=== PATIENT | male | born 1970 | race Caucasian/White ===

== ENCOUNTER 2018-10-19 06:58 | Day surgery (SDC) | payer BC, SELFPAY ==
[2018-10-19 07:21] VITALS: BP 120/78; PULSE 67; RESP 16; TEMP 35.8; O2SAT 95
[2018-10-19] MEDS: Lactated Ringers 1,000 ML 30 ML IV (07:43)
--- NOTE | 2018-10-19 08:55 | STOM_PTH ---
PATIENT: Tushar Genao LOC: [facility] U#:[id number] AGE/SX: 48/M ROOM: RE10/19/[address]: Prince Ramesh DO : 1970 BED: DIS: 10/19/2018 SPEC #: [id number] RECD: 10/19/18 13:02 STATUS: PO [facility] #: [id number] MIA: 10/19/18 08:[address]: Prince Ramesh DEPT: Surgical Specimen RECD BY: Rubina Jc ENTERED: 10/19/18 13:04 SP TYPE: STOMACH OTHR DR: Spike Oconnor Tissues: 1 - STOMACH BIOPSY 2 - ESOPHAGUS BIOPSY 3 - BIOPSY BOWEL Procedures: GROSS AND MICRO LEVEL 4 Comments: [id number]
[2018-10-19 10:16] VITALS: BP 102/63; PULSE 53; RESP 16; TEMP 36; O2SAT 96
--- NOTE | 2018-10-19 10:17 | COLE_ITS ---
Date of service: 10/19/18 Time of Service: 10:13 Colonoscopy Report Date of procedure: 10/19/18 Pre-op diagnosis general: 1. GERD 2. Colorectal cancer screening Post-op diagnosis procedure note: other (1. GERD 2. Sigmoid Colon polyp) Procedure: 1. Esophagogastroduodenoscopy with biopsy by cold forceps 2. Colonoscopy to the cecum with biopsy by cold snare. Surgeon: Prince Ramesh Anesthesia proc note operative: MAC (Johnny Solorzano CRNA: ASA 2, Mallampati Class II) Estimated blood loss (mL): 2 Pathology: other (1. Gastric Antrum 2. lower esophagus 3. sigmoid colon polyp.) Complications: None Disposition: same day Indications: 48-year-old male referred for GERD and colorectal cancer screening. He has had a fairly long history of gastroesophageal reflux disease well treated with PPI. Though if he stopped taking his medicine he will develop symptoms. He has never had an upper endoscopy to evaluate this. He is also due for colorectal cancer screening by colonoscopy he has been asymptomatic and has no family history of colorectal cancer. It was recommended to him that he have upper endoscopy and colonoscopy. The procedures were reviewed with him, and the risks of the procedures were discussed. All his questions were answered to his satisfaction. Consent was obtained to proceed with EGD and colonoscopy Prep: Miralax/Dulcolax (Bowel prep adequate) Findings: In examining the upper gastrointestinal tract from the oropharynx to the third portion of the duodenum, there is some inflammatory changes encountered in the gastric antrum, and in the esophagus there were some subtle changes that could suggest eosinophilic esophagitis. Biopsies were taken from both the gastric antrum and lower esophagus. In examination of the colon from cecum to anus, a small polyp less than 1 cm in greatest diameter was identified in the sigmoid colon which was subsequently removed by cold biopsy forceps. No other abnormalities are noted of the colon, rectum, or anorectal junction. Procedure Description: The patient was brought to the procedure room. Monitoring for telemetry, end-ti kimmie CO2, O2 saturation, blood pressure were applied. An appropriate timeout was taken reviewing the patient's identification, allergies, medications,and procedure. Sedation was titrated for effect by the [employer]ISON LIB[employer]. The upper endoscopy was performed first. An Olympus variable stiffness endoscope was advanced from the oropharynx to the third portion of the duodenum without difficulty. The scope was then withdrawn in circumferential manner from the duodenum back to the oropharynx. In performing withdrawal of the scope, the duodenum appeared grossly normal. The scope was withdrawn into the gastric antrum and retroflexed to examine the entire stomach, inflammatory changes were noted of the gastric antrum which biopsies were taken from and submitted for pathology the remainder of the stomach including the lesser and greater curvatures anterior and posterior surface and fundus appear grossly normal. The scope was then withdrawn to the GE junction which I measured at 38 cm. The Z line was at 38 cm and appeared regular. I did see some subtle changes in the lower esophagus, tracheal rings, suggestive of a eosinophilic esophagitis I withdrew the scope through the remainder of the esophagus all which appear grossly normal. Scope was then withdrawn terminating the upper endoscopy. The patient was then repositioned for colonoscopy. Sedation was titrated for effect again. Once adequate sedation was achieved, I performed a inspection of the external perineum, and a digitial rectal examination. No significant external abnormalities were noted. On digital rectal examination, there was no blood, no masses, good rectal tone. I advanced the colonoscope from the anus to the cecum under direct visualization. The cecum was identified by the ileal-cecal valve, and the appendiceal orifice. The scope was then withdrawn in circumferential manner from the cecum to the rectum. In the colon a polypoid was identified in the sigmoid. The polyp was less than 1 cm in greatest diameter and removed by cold biopsy forceps, no other abnormalities were noted of the colon. The scope was then withdrawn into the rectum, and retroflexed. No abnormalities were noted of the rectum or anorectal junction. The scope was then withdrawn, terminating the procedure. There were no complications during the procedure, and the patient tolerated the procedure well. The patient was returned to the day surgery recovery area in good condition. Plan: We will await pathology before making further recommendations.
[2018-10-19] MEDS: Mylanta Suspension 30 ML CUP PO (10:51)
--- NOTE | 2018-10-19 18:51 | W.PM.DSUDISC ---
Discharge Plan Disposition Patient Disposition: HOME Condition: Good Discharge Details Reason For Visit: SCREENING/ GERD Attending Provider: Prince Ramesh Primary Care Provider: Spike Oconnor Home Meds and New Rx's Prescriptions: Continued vitamin B complex [B Complex 1] tablet 1 tab PO DAILY RF: 0 acetaminophen [Tylenol] 325 MG tablet 975 mg PO PRN PRNRF: 0 Prilosec OTC 20 MG tablet,delayed release (DR/EC) 20 mg PO DAILY RF: 0 multivitamin [Once Daily] 1 EACH tablet 1 tab PO DAILY RF: 0 Discontinued bisacodyl [Dulcolax (bisacodyl)] 5 mg tablet,delayed release (DR/EC) 10 mg PO BID Qty: 4 RF: 0 polyethylene glycol 3350 [Miralax] 17 gram/dose powder 255 g PO ONCE Qty: 255 RF: 0 Discharge Instructions Instructions: Colonoscopy (DC), Upper Endoscopy (DC) Stand Alone Forms: Colonoscopy Post Instructions, DSU Post EGD Instructions, Press [place] (DSU) Activity:: Activity as Tolerated Diet:: As Tolerated Discharge Orders Discharge Orders: Discharge Order (Routine); Ordered 10/19/18 Ordered By: Prince Ramesh Discharge Data Discharge Date/Time-TO BE ENTERED AT DEPARTURE: 10/19/18 11:07 DS: Diagnosis Discharge Diagnosis (1) Acid reflux: Status: Acute Asessment and Plan: Upper endoscopy performed (2) Encounter for colorectal cancer screening: Status: Acute Asessment and Plan: Colonoscopy performed
== END 2018-10-19 11:07 | disposition home or self-care (01) ==
PROVIDERS: PCP Specialist/Technologist Athletic Trainer; Visit Provider Surgery
PROC: (CPT 45385; principal; 2018-10-19 08:15)
DX: Z12.11 Encounter for screening for malignant neoplasm of colon (principal); D12.5 Benign neoplasm of sigmoid colon; K21.9 Gastro-esophageal reflux disease without esophagitis; K31.89 Other diseases of stomach and duodenum; K21.0 Gastro-esophageal reflux disease with esophagitis
CPT/HCPCS: 45385; 43239; 88305

== ENCOUNTER 2019-01-14 09:17 | Emergency (ER) | payer BC, SELFPAY ==
[2019-01-14 09:22] VITALS: BP 143/84; PULSE 68; RESP 18; TEMP 36.8; O2SAT 97
--- NOTE | 2019-01-14 09:52 | W.ED.GENAD ---
Discharge Plan Disposition Patient Disposition: HOME Condition: Stable Discharge Details Chief Complaint: RespSymp Clinical Impression: URI (upper respiratory infection) Primary Care Provider: Spike Oconnor ED Provider: Mohsen Bradford Home Meds and New Rx's Prescriptions: New levofloxacin 750 mg tablet 750 mg PO DAILY Qty: 5 RF: 0 prednisone 20 mg tablet 60 mg PO DAILY 5 Days Qty: 15 RF: 0 Continued vitamin B complex [B Complex 1] tablet 1 tab PO DAILY RF: 0 acetaminophen [Tylenol] 325 MG tablet 975 mg PO PRN PRNRF: 0 Prilosec OTC 20 MG tablet,delayed release (DR/EC) 20 mg PO DAILY RF: 0 multivitamin [Once Daily] 1 EACH tablet 1 tab PO DAILY RF: 0 Discharge Instructions Instructions: Upper Respiratory Infection (ED) Additional Instructions: follow up with your primary care provider within a week especially if you are not improving. You should discuss with them having formal pulmonary function testing at that time as well if you feel you are becoming more ill or more short of breath despite the medications return to the emergency department Medical Decision Making 48 yo male with hx of gerd, former smoker with over 30 years of smoking per pt, who comes in with cc of cough for a few days and chills. Denies recent travel, chest pain/pressure, abdominal pain, rashes. He is speaking in full sentences on exam in no distress and appears well systemically. He has wheezing in the apices bilaterally, no focal rhonchi or crackles. He has no abdominal tenderness, no murmurs or stigmata of endocarditis. I suspect he has a uri, and could also have undiagnosed copd gien his smoking hx. Given the wheezing and increased cough will treat with albuterol and steroids and also abx. He appears well without focal findings on lung exam or hypoxia so do not feel chest imaging indicate.d No calf pain or evidence of dvt or pleuritic chest pain so doubt pe at this time. ADvised f/u with pcp and return precautions given Differential Diagnosis uri, pna, copd exacerbation HPI General Mode of arrival: ambulatory. Date/Time Provider Initiated Documentation: 01/14/19 09:46. Limitations to Documentation: no limitations. Information obtained by: patient. History of Present Illness 48 year old M presents to the emergency department with the chief complaint of cough, described as moderate, Patient reports no radiation. Patient started experiencing this day(s) (4) and it has been intermittent. No relieving factors improve symptom(s), No exacerbating factors reported . Patient notes fever/chills (chills, no fevers). Patient did receive the following treatments prior to arrival, none Related Data Home Medications Medication Instructions Recorded Confirmed multivitamin [Once Daily] 1 tab PO DAILY 03/23/17 01/14/19 Prilosec OTC 20 mg PO DAILY 05/02/17 01/14/19 acetaminophen [Tylenol] 975 mg PO PRN PRN 05/02/17 01/14/19 vitamin B complex tablet 1 tab PO DAILY 09/24/18 01/14/19 levofloxacin 750 mg PO DAILY #5 tab 01/14/19 prednisone 60 mg PO DAILY 5 Days #15 tab 01/14/19 Previous Rx's Medication Instructions Recorded levofloxacin 750 mg PO DAILY #5 tab 01/14/19 prednisone 60 mg PO DAILY 5 Days #15 tab 01/14/19 Allergies Allergy/AdvReac Type Severity Reaction Status Date / Time acetaminophen Allergy Severe Verified 01/14/19 09:55 [From Vicks NyQuil Cold/Flu Liquicap] iodine Allergy Severe Anaphylaxsis, Verified 01/14/19 09:55 hives shellfish derived Allergy Verified 01/14/19 09:55 dextromethorphan AdvReac Severe Verified 01/14/19 09:55 [From Vicks NyQuil Cold/Flu Liquicap] doxylamine AdvReac Severe Verified 01/14/19 09:55 [From Vicks NyQuil Cold/Flu Liquicap] General Stated Complaint: RespSymp JAIMIE: 3 Review of Systems Review of Systems All systems reviewed & are unremarkable except as noted in HPI and below Constitutional Denies fever(s) and Denies weakness ENT Denies change in voice Cardiovascular Denies chest pain Gastrointestinal Denies abdominal pain and Denies vomiting Musculoskeletal Denies joint swelling Neurologic Denies weakness [facility] Medical History Former smoker (Inactive) Umbilical hernia (Resolved) Acid reflux (Acute) Hyperlipidemia (Chronic) Tubular adenoma of colon (Inactive 10/19/18) Surgical History History of esophagogastroduodenoscopy (EGD) (Chronic 10/19/18) H/O colonoscopy (Chronic 10/19/18) H/O umbilical hernia repair (Inactive 05/03/17) Social History Smoking/Tobacco Use Status: Former Tobacco Use Quit Date: 01/07/15 Tobacco: How many years used: 35 Alcohol Intake: current Alcohol Intake frequency: holidays/special occasions only Drug use: Never Substance use type: does not use Do you feel safe at home: Yes Do you feel safe in your relationship?: Yes Exam Const General: no acute distress Orientation: alert HENMT Head: normal to inspection Ears: external ears normal General nose exam: external nose normal Mouth: moist mucous membranes Eyes General: appearance normal, both eyes and all related structures Neck Neck: normal visual inspection Resp Effort & Inspection: normal respiratory effort and able to speak in complete sentences Cardio Rate: regular rate Skin General skin exam: no rashes or lesions noted Neuro General: alert and oriented x3 Extrem General: normal to inspection Psych Mental Status: mental status grossly normal Course Vital Signs Temperature 36.8 C 01/14/19 09:22 Pulse 68 01/14/19 09:22 Respiratory Rate 18 01/14/19 09:22 Blood Pressure 143/84 H 01/14/19 09:22 Pulse Oximetry 97 01/14/19 09:22 Temperature 36.8 C 01/14/19 09:22 Temperature Source Skin 01/14/19 09:22 Pulse 68 01/14/19 09:22 Respiratory Rate 18 01/14/19 09:22 Blood Pressure 143/84 H 01/14/19 09:22 Blood Pressure Position Sitting 01/14/19 09:22 Pulse Oximetry 97 01/14/19 09:22 Oxygen Delivery Method Room Air 01/14/19 09:22 Oxygen Flow Rate 0 01/14/19 09:22 Pain Level 6 01/14/19 09:22
--- NOTE | 2019-01-14 09:56 | ED.GENADUL_ITS ---
Discharge Plan Disposition Patient Disposition: HOME Condition: Stable Discharge Details Chief Complaint: RespSymp Clinical Impression: URI (upper respiratory infection) Primary Care Provider: Spike Oconnor ED Provider: Mohsen Bradford Home Meds and New Rx's Prescriptions: New levofloxacin 750 mg tablet 750 mg PO DAILY Qty: 5 RF: 0 prednisone 20 mg tablet 60 mg PO DAILY 5 Days Qty: 15 RF: 0 Continued vitamin B complex [B Complex 1] tablet 1 tab PO DAILY RF: 0 acetaminophen [Tylenol] 325 MG tablet 975 mg PO PRN PRNRF: 0 Prilosec OTC 20 MG tablet,delayed release (DR/EC) 20 mg PO DAILY RF: 0 multivitamin [Once Daily] 1 EACH tablet 1 tab PO DAILY RF: 0 Discharge Instructions Instructions: Upper Respiratory Infection (ED) Additional Instructions: follow up with your primary care provider within a week especially if you are not improving. You should discuss with them having formal pulmonary function testing at that time as well if you feel you are becoming more ill or more short of breath despite the medications return to the emergency department Medical Decision Making 48 yo male with hx of gerd, former smoker with over 30 years of smoking per pt, who comes in with cc of cough for a few days and chills. Denies recent travel, chest pain/pressure, abdominal pain, rashes. He is speaking in full sentences on exam in no distress and appears well systemically. He has wheezing in the apices bilaterally, no focal rhonchi or crackles. He has no abdominal tenderness, no murmurs or stigmata of endocarditis. I suspect he has a uri, and could also have undiagnosed copd gien his smoking hx. Given the wheezing and increased cough will treat with albuterol and steroids and also abx. He appears well without focal findings on lung exam or hypoxia so do not feel chest imaging indicate.d No calf pain or evidence of dvt or pleuritic chest pain so doubt pe at this time. ADvised f/u with pcp and return precautions given Differential Diagnosis uri, pna, copd exacerbation HPI General Mode of arrival: ambulatory . Date/Time Provider Initiated Documentation: 01/14/19 09:46 . Limitations to Documentation: no limitations . Information obtained by: patient . History of Present Illness 48 year old M presents to the emergency department with the chief complaint of cough, described as moderate, Patient reports no radiation. Patient started experiencing this day(s) (4) and it has been intermittent. No relieving factors improve symptom(s), No exacerbating factors reported . Patient notes fever/chills (chills, no fevers). Patient did receive the following treatments prior to arrival, none Related Data Home Medications Medication Instructions Recorded Confirmed multivitamin [Once Daily] 1 tab PO DAILY 03/23/17 01/14/19 Prilosec OTC 20 mg PO DAILY 05/02/17 01/14/19 acetaminophen [Tylenol] 975 mg PO PRN PRN 05/02/17 01/14/19 vitamin B complex tablet 1 tab PO DAILY 09/24/18 01/14/19 levofloxacin 750 mg PO DAILY #5 tab 01/14/19 prednisone 60 mg PO DAILY 5 Days #15 tab 01/14/19 Previous Rx's Medication Instructions Recorded levofloxacin 750 mg PO DAILY #5 tab 01/14/19 prednisone 60 mg PO DAILY 5 Days #15 tab 01/14/19 Allergies Allergy/AdvReac Type Severity Reaction Status Date / Time acetaminophen Allergy Severe Verified 01/14/19 09:55 [From Vicks NyQuil Cold/Flu Liquicap] iodine Allergy Severe Anaphylaxsis, Verified 01/14/19 09:55 hives shellfish derived Allergy Verified 01/14/19 09:55 dextromethorphan AdvReac Severe Verified 01/14/19 09:55 [From Vicks NyQuil Cold/Flu Liquicap] doxylamine AdvReac Severe Verified 01/14/19 09:55 [From Vicks NyQuil Cold/Flu Liquicap] General Stated Complaint: RespSymp JAIMIE: 3 Review of Systems Review of Systems All systems reviewed & are unremarkable except as noted in HPI and below Constitutional Denies fever(s) and Denies weakness ENT Denies change in voice Cardiovascular Denies chest pain Gastrointestinal Denies abdominal pain and Denies vomiting Musculoskeletal Denies joint swelling Neurologic Denies weakness [facility] Medical History Former smoker (Inactive) Umbilical hernia (Resolved) Acid reflux (Acute) Hyperlipidemia (Chronic) Tubular adenoma of colon (Inactive 10/19/18) Surgical History History of esophagogastroduodenoscopy (EGD) (Chronic 10/19/18) H/O colonoscopy (Chronic 10/19/18) H/O umbilical hernia repair (Inactive 05/03/17) Social History Smoking/Tobacco Use Status: Former Tobacco Use Quit Date: 01/07/15 Tobacco: How many years used: 35 Alcohol Intake: current Alcohol Intake frequency: holidays/special occasions only Drug use: Never Substance use type: does not use Do you feel safe at home: Yes Do you feel safe in your relationship?: Yes Exam Const General: no acute distress Orientation: alert HENMT Head: normal to inspection Ears: external ears normal General nose exam: external nose normal Mouth: moist mucous membranes Eyes General: appearance normal, both eyes and all related structures Neck Neck: normal visual inspection Resp Effort & Inspection: normal respiratory effort and able to speak in complete sentences Cardio Rate: regular rate Skin General skin exam: no rashes or lesions noted Neuro General: alert and oriented x3 Extrem General: normal to inspection Psych Mental Status: mental status grossly normal Course Vital Signs Temperature 36.8 C 01/14/19 09:22 Pulse 68 01/14/19 09:22 Respiratory Rate 18 01/14/19 09:22 Blood Pressure 143/84 H 01/14/19 09:22 Pulse Oximetry 97 01/14/19 09:22 Temperature 36.8 C 01/14/19 09:22 Temperature Source Skin 01/14/19 09:22 Pulse 68 01/14/19 09:22 Respiratory Rate 18 01/14/19 09:22 Blood Pressure 143/84 H 01/14/19 09:22 Blood Pressure Position Sitting 01/14/19 09:22 Pulse Oximetry 97 01/14/19 09:22 Oxygen Delivery Method Room Air 01/14/19 09:22 Oxygen Flow Rate 0 01/14/19 09:22 Pain Level 6 01/14/19 09:22
[2019-01-14] MEDS: Albuterol HFA 8 GM 60 PUFF INH IH (10:05)
== END 2019-01-14 10:06 | disposition home or self-care (01) ==
PROVIDERS: Emergency Provider Emergency Medicine; PCP Specialist/Technologist Athletic Trainer
DX: J06.9 Acute upper respiratory infection, unspecified (principal); Z87.891 Personal history of nicotine dependence
CPT/HCPCS: 99283

== ENCOUNTER 2019-01-22 07:37 | Outpatient (CLI) | payer BC, SELFPAY ==
--- NOTE | 2019-01-22 08:17 | DI.RAD_ITS ---
SYMPTOM/DIAGNOSIS: COUGH, R05 PA AND LATERAL CHEST: The heart is normal in size. The lungs are clear. The mediastinal structures and pleura appear intact. CONCLUSION: Normal chest. No evidence of acute cardiopulmonary disease.
== END 2019-01-22 07:57 ==
PROVIDERS: PCP Specialist/Technologist Athletic Trainer; Visit Provider Specialist/Technologist Athletic Trainer
DX: R05 Cough (principal)
CPT/HCPCS: 71046

== ENCOUNTER 2019-08-02 10:42 | Outpatient (REF) | payer BC, SELFPAY ==
[2019-08-02 20:20] LABS: Anion Gap 10.2 mmol/L (3-11); BUN 13 mg/dL (7-18); CO2 27.8 mmol/L (21.0-32.0); CREATININE 1.06 mg/dL (0.70-1.30); Calcium 9.2 mg/dL (8.5-10.1); Calculated LDL 144 mg/dL; Chloride 104 mmol/L (98-107); Cholesterol 218 mg/dL (50-200); Glucose 95 mg/dL (70-100); HDL Cholesterol 37 mg/dL (40-60); Potassium 4.6 mmol/L (3.5-5.1); Sodium 142 mmol/L (136-145); Triglyceride 185 mg/dL (30-150)
[2019-08-05 11:34] LABS: PSA, Screening 0.4 ng/ml (0-3.5)
== END 2019-08-02 11:02 ==
LOC: NCHCN 10:42
PROVIDERS: PCP Specialist/Technologist Athletic Trainer; Visit Provider Specialist/Technologist Athletic Trainer
DX: Z00.00 Encounter for general adult medical examination without abnormal findings (principal); Z13.228 Encounter for screening for other metabolic disorders; Z13.220 Encounter for screening for lipoid disorders; Z12.5 Encounter for screening for malignant neoplasm of prostate
CPT/HCPCS: 80048; 80061; 84153

== ENCOUNTER 2019-08-26 14:39 | Outpatient (CLI) | payer BC, SELFPAY ==
[2019-08-26 17:29] LABS: TSH (W/Ref FT4) 2.69 uIU/mL (0.36-3.74)
== END 2019-08-26 14:59 ==
PROVIDERS: PCP Specialist/Technologist Athletic Trainer; Visit Provider Otolaryngology Otolaryngology/Facial Plastic Surgery
DX: R53.83 Other fatigue (principal)
CPT/HCPCS: 36415; 84443

== ENCOUNTER 2020-01-29 10:33 | Outpatient (CLI) | payer OTHER, SELFPAY ==
--- NOTE | 2020-01-29 10:15 | DI.RAD_ITS ---
EXAM: XR KNEE LT 3V AP,LAT,PRATEEK CLINICAL HISTORY: pain TECHNIQUE: COMPARISON: No exams were available for comparison FINDINGS: Three views were obtained. The lateral view shows an apparent knee joint effusion. No bony abnormal ity is seen. IMPRESSION:
== END 2020-01-29 10:53 ==
PROVIDERS: PCP Specialist/Technologist Athletic Trainer; Visit Provider Orthopaedic Surgery
DX: M25.562 Pain in left knee (principal); M25.462 Effusion, left knee; S83.512A Sprain of anterior cruciate ligament of left knee, initial encounter
CPT/HCPCS: 73562

== ENCOUNTER 2020-02-07 08:08 | Outpatient (CLI) | payer OTHER, SELFPAY ==
--- NOTE | 2020-02-07 | DI.MRI_ITS ---
EXAM: MR LOWER JOINT LT WO CLINICAL HISTORY: INJURY, KNEE PAIN. TECHNIQUE: Multiplanar multisequence MRI was performed. COMPARISON: XR left knee 01/29/2020. FINDINGS: BONES: There is marrow edema seen in the lateral aspect of the lateral femoral condyle and the proxim al lateral tibia. The findings are suggestive of contusions. JOINTS: There is mild thinning of the articular cartilage in the medial femoral tibial compartment. There is a small to moderate joint effusion. TENDONS: Extensor mechanism: Unremarkable. Medial retinaculum: Unremarkable. Lateral retinaculum: Unremarkable. Popliteus: Unremarkable. MUSCLES: Unremarkable. MENISCI: There is a tear of the posterior horn of the medial meniscus. The lateral meniscus is unrem arkable. SOFT TISSUES: There is a popliteal cyst present. LIGAMENTS: Anterior Cruciate: The fibers of the proximal anterior cruciate ligament appear incomplete suggesting a tear. Posterior Cruciate: Unremarkable. Medial Collateral:There is a partial tear of the proximal medial collateral ligament. Surrounding ed christopher is present. (Series 9001, image 18) Lateral Collateral: Unremarkable. OTHER: IMPRESSION: 1. Tear of the posterior horn of the medial meniscus. 2. Proximal anterior cruciate ligament tear. 3. Partial tear of the proximal medial collateral ligament. 4. Contusions involving the lateral femoral condyle and the proximal lateral tibia. 5. Joint effusion. DATA REPOSITORY:
== END 2020-02-07 08:28 ==
PROVIDERS: PCP Specialist/Technologist Athletic Trainer; Visit Provider Orthopaedic Surgery
DX: M25.562 Pain in left knee (principal); S80.02XA Contusion of left knee, initial encounter; M25.462 Effusion, left knee; S83.242A Other tear of medial meniscus, current injury, left knee, initial encounter; M71.22 Synovial cyst of popliteal space [Baker], left knee; S83.412A Sprain of medial collateral ligament of left knee, initial encounter; S83.512A Sprain of anterior cruciate ligament of left knee, initial encounter
CPT/HCPCS: 73721

== ENCOUNTER 2020-05-15 07:37 | Outpatient (CLI) | payer OTHER, BC, SELFPAY ==
[2020-05-16 23:43] LABS: COVID-19 RT-PCR Result NEGATIVE (Negative)
== END 2020-05-15 07:57 ==
PROVIDERS: PCP Specialist/Technologist Athletic Trainer; Visit Provider Orthopaedic Surgery
DX: S83.242A Other tear of medial meniscus, current injury, left knee, initial encounter (principal); S83.412A Sprain of medial collateral ligament of left knee, initial encounter
CPT/HCPCS: U0003

== ENCOUNTER 2020-05-18 06:13 | Day surgery (SDC) | payer OTHER, SELFPAY ==
[2020-05-18] VITALS (7 sets, daily range): BP systolic 128–161; BP diastolic 57–92; PULSE 49–59; RESP 12–17; TEMP 36.1–36.3; O2SAT 93–98
[2020-05-18] MEDS: Lactated Ringers 1,000 ML 80 ML IV (06:42)
[2020-05-18] MEDS: ceFAZolin 2 GM/50 ML BAG IVPB (07:28)
--- NOTE | 2020-05-18 08:36 | W.PM.DSUDISC ---
Discharge Plan Disposition Patient Disposition: HOME Condition: Good Discharge Details Reason For Visit: ARTHROSCOPY L KNEE Attending Provider: Bryan Kelsey Home Meds and New Rx's Prescriptions: New ibuprofen 800 mg tablet 800 mg PO TID Qty: 30 RF: 1 hydrocodone-acetaminophen 5-325 mg tablet 1 tab PO Q4H PRN (Reason: pain) Qty: 14 RF: 0 No Action vitamin B complex [B Complex 1] tablet 1 tab PO DAILY RF: 0 acetaminophen 500 mg tablet 1,500 mg PO ONCE PRNRF: 0 omeprazole magnesium [Prilosec OTC] 20 MG tablet,delayed release (DR/EC) 20 mg PO DAILY RF: 0 multivitamin [Once Daily] 1 EACH tablet 1 tab PO DAILY RF: 0 Discharge Instructions Additional Instructions: Crutches to walk. Put as much weight on L leg as your pain allows. Discontinue crutches when you can put full weight on L leg with very little pain. Keep cryocuff on L knee continuously until 11 pm tonite. Tomorrow, start to use 4 times/day for 1 hour each time. Elevate L leg on 1-2 pillows as much as possible for next 48 hours. May remove dressings, shower, and get incisions wet after 48 hours. Leave incisions uncovered when they are dry and sealed. Outpatient physical therapy for L knee rehab post-arthroscopic partial medial meniscectomy. Follow up with in 2 weeks. Take ibuprofen 3 times/day to decrease inflammation and swelling. Take hydrocodone for breakthru pain, if needed. Referrals: Bryan Kelsey MD [ [facility] STAFF PHYSICIAN] - (f/u in 2 weeks) Equipment/Supplies: Partial Weight Bearing Crutches Activity:: Activity as Tolerated Remove Dressings/Wound Care:: 48 hours Shower/Bathe:: 48 hours Diet:: As Tolerated Discharge Orders Discharge Orders: Discharge Order (Routine); Ordered 05/18/20 Ordered By: Bryan Kelsey
[2020-05-18] MEDS: oxyCODONE 5 MG TAB PO (09:43)
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
== END 2020-05-18 10:31 | disposition home or self-care (01) ==
PROVIDERS: Visit Provider Orthopaedic Surgery
PROC: (CPT 29870; principal; 2020-05-18 07:30)
DX: S83.242A Other tear of medial meniscus, current injury, left knee, initial encounter (principal); S83.512A Sprain of anterior cruciate ligament of left knee, initial encounter; X50.1XXA Overexertion from prolonged static or awkward postures, initial encounter; K21.9 Gastro-esophageal reflux disease without esophagitis
CPT/HCPCS: 29888; 29881; J0690; J1100; J1885; J2250; J2405; J2704

== ENCOUNTER 2020-11-13 19:15 | Outpatient (REF) | payer BC, SELFPAY ==
[2020-11-13 20:00] LABS: Calculated LDL 130 mg/dL (<100); Cholesterol 215 mg/dL (<200); HDL Cholesterol 37 mg/dL (40-60); Magnesium 2.1 mg/dL (1.8-2.4); Triglyceride 242 mg/dL (<150)
== END 2020-11-13 19:35 ==
LOC: NCHCN 19:15
PROVIDERS: PCP Specialist/Technologist Athletic Trainer; Visit Provider Nurse Practitioner Family
DX: Z00.00 Encounter for general adult medical examination without abnormal findings (principal); E78.2 Mixed hyperlipidemia; K21.9 Gastro-esophageal reflux disease without esophagitis; M23.92 Unspecified internal derangement of left knee
CPT/HCPCS: 80061; 83735

== ENCOUNTER 2021-01-20 02:00 | Outpatient (CLI) | payer OTHER, SELFPAY ==
--- NOTE | 2021-01-20 | DI.MRI_ITS ---
EXAM: MR LOWER JOINT LT WO CLINICAL HISTORY: LT KNEE PAIN,MEDIAL MENISCAL TEAR,S83.242A,INITIAL ENCOUNTER TECHNIQUE: Multiplanar multisequence MRI of the knee was performed. COMPARISON: CR XR KNEE LT 3V AP,LAT,PRATEEK from 01/29/2020 MR MR LOWER JOINT LT WO from 02/07/2020 X-rays January 2020 were reviewed FINDINGS: EFFUSION: There is a small joint effusion. There is a thin Cedeño's cyst in the medial popliteal dionte a which measures 7 cm length and 1 cm maximum AP dimension. MARROW:There is no evidence of fracture, nor prominent bone contusion. The amount of pivot shift bon e contusions seen on the January 2020 MRI scan as decreased and there is presently only a small amount of subarticular bone edema in outer aspect medial tibial plateau and overlying medial femoral condyle , this overlying the medial meniscal abnormality described below. PATELLOFEMORAL COMPARTMENT: The quadriceps tendon is intact. The patellar ligament is intact. There is small amount of fluid interposed between the distal patellar tendon and the anterior tibial tuber michael without signal abnormality within the tendon or within the tubercle nor abnormal signal within th e anterior intra-articular Hoffa fat pad. There is mild irregularity of the surface of the [place] cartilage over the lateral facet. No full thickness fissure. No osteochondral defect and no degenerative subarticular cysts in the posterior p atella at this level. There is no intraosseous signal to suggest recent patellar dislocation.There a re no acute patellar retinacular tears. CRUCIATE LIGAMENTS: There is a high-grade tear of the anterior cruciate ligament which is probably blood bacute.The posterior cruciate ligament is intact. MEDIAL COMPARTMENT/MEDIAL MENISCUS: There is now a complex tear of the posterior horn of the medial m eniscus which is more prominent on the prior study of January 2020. This may be related to increased t earing versus interval instrumentation. Extends towards the junction with the anterior horn and ther e is some extrusion of the anterior horn. There is also an element of miniscule capsular separation. There is also now an area of full-thickness cartilage thinning over the weight-bearing surface of t he medial femoral condyle which measures 1.4 cm wide by 1.1 cm AP. There is no subarticular edema in the femoral condyle at this level.. No osteophytes evident. MEDIAL COLLATERAL LIGAMENT: Sprain signal. Previously described partial tearing appears somewhat hea led at this time.. LATERAL COMPARTMENT/LATERAL MENISCUS: There is no evidence of lateral meniscal tear.There are no nik dral defects, osteochondral defects, subarticular marrow edema, nor osteophytes evident. ILIOTIBIAL BAND: Intact. However, there is fluid medial to the iliotibial band interposed between ba nd in the femoral condyle in the most lateral aspect of the suprapatellar bursa. LATERAL COLLATERAL LIGAMENT COMPLEX: The fibular collateral ligament is intact. The biceps femoris t endon is intact.Popliteus muscle and tendon are intact. IMPRESSION: 1. Compared to the prior knee MRI study of January 2020 the tear in the posterior horn of the medial me niscus has increased in size although correlation with any interval instrumentation is recommended. There is also now significant area of overlying cartilage denudation over the medial femoral condyle measuring 14 millimeters wide by 11 millimeters AP, not previously present. There is no subarticular edema nor unstable osteochondral defect at this level. Some extrusion of the anterior horn is noted . There are no tears of the lateral meniscus. 2. High-grade tear of the anterior cruciate ligament which appears subacute. The PCL is intact. 3. Lateral collateral ligament complex is intact. Some fluid is seen medial to the iliotibial band. 4. There is mild surface signal abnormality in the [place] cartilage over the lateral patellar facet . Slightly increased from previous but not full-thickness thinning nor associated with intraosseous abnormality within the subjacent patella. Also no evidence of prior patellar dislocation. 5. Small joint effusion. Cedeño cyst in the medial popliteal fossa is again noted.. DATA REPOSITORY:
== END 2021-01-20 02:20 ==
PROVIDERS: PCP Nurse Practitioner Family; Visit Provider Orthopaedic Surgery
DX: M25.562 Pain in left knee (principal); S83.242A Other tear of medial meniscus, current injury, left knee, initial encounter; S83.512A Sprain of anterior cruciate ligament of left knee, initial encounter; M25.462 Effusion, left knee
CPT/HCPCS: 73721

== ENCOUNTER 2021-04-29 16:24 | Emergency (ER) | payer BC, SELFPAY ==
[2021-04-29 16:27] VITALS: BP 156/89; PULSE 67; RESP 18; TEMP 37; O2SAT 96
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
[2021-04-29] MEDS: Bacitracin 30 GM TUBE TP (17:12)
== END 2021-04-29 17:17 | disposition home or self-care (01) ==
PROVIDERS: Emergency Provider Registered Nurse Emergency; PCP Nurse Practitioner Family
DX: L55.1 Sunburn of second degree (principal)
CPT/HCPCS: 99282; 99283

== ENCOUNTER 2021-11-19 12:04 | Outpatient (REF) | payer BC, SELFPAY ==
[2021-11-19 15:17] LABS: ALT 37 U/L (16-63); AST 19 U/L (15-37); Albumin 3.8 g/dL (3.4-5.0); Alkaline Phosphatase 120 U/L (46-116); Anion Gap 9.5 mmol/L (3-11); BUN 14 mg/dL (7-18); Bilirubin, Total 0.2 mg/dL (0.2-1.0); CO2 26.5 mmol/L (21.0-32.0); Calcium 8.7 mg/dL (8.5-10.1); Calculated LDL 124 mg/dL (<100); Chloride 104 mmol/L (98-107); Cholesterol 192 mg/dL (<200); Glucose 95 mg/dL (74-106); HDL Cholesterol 38 mg/dL (40-60); Potassium 4.3 mmol/L (3.5-5.1); Sodium 140 mmol/L (136-145); Total Protein 7.1 g/dL (6.4-8.2); Triglyceride 150 mg/dL (<150)
== END 2021-11-19 12:05 | disposition home or self-care (01) ==
LOC: NCHCN 12:04
PROVIDERS: PCP Nurse Practitioner Family; Visit Provider Nurse Practitioner Family
DX: E78.2 Mixed hyperlipidemia (principal); Z00.00 Encounter for general adult medical examination without abnormal findings
CPT/HCPCS: 80053; 80061

== ENCOUNTER 2021-12-01 01:04 | Outpatient (CLI) | payer BC, SELFPAY ==
[2021-12-01 12:45] LABS: Source Nasal/Nares
[2021-12-01 16:47] LABS: COVID-19 PCR Negative (Negative)
== END 2021-12-01 01:05 | disposition home or self-care (01) ==
LOC: LBO 01:04
PROVIDERS: PCP Nurse Practitioner Family; Visit Provider Surgery
DX: Z20.822 Contact with and (suspected) exposure to COVID-19 (principal)
CPT/HCPCS: 87635

== ENCOUNTER 2021-12-03 07:07 | Day surgery (SDC) | payer BC, SELFPAY ==
--- NOTE | 2021-12-02 11:42 | COLE_ITS ---
Colonoscopy Report Date of procedure: 12/03/21 Pre-op diagnosis general: Villous adenoma of the sigmoid in 2018 Post-op diagnosis procedure note: other (diverticula/polyps) Surgeon: Maryjo Melara Anesthesia Type: General:No Airway Estimated blood loss (mL): 2 Pathology: other Complications: None Disposition: same day Prep: Miralax/Dulcolax Findings: 17 Procedure Description: After informed consent was obtained the patient was taken to the procedure room and placed in a left decubitous position. Monitors were applied and a time out was done. The patients name, date of , procedure, allergies to medications and metal in their body was reviewed. The patient was then sedated. Once sedated and comfortable a rectal exam was done. External exam was normal. Internal exam revealed a normal sphincter tone and no palpable masses. The prost ate nl. The scope was then introduced and retrofelexed. No internal hemorrhoids were identified. The scope was then advanced to the cecum w/ out difficulty. The TI and appendiceal orifice were identified. The prep was BBPS-2 in right/tranverse colon, and BBPS-1 in left colon The scope was then slowly retracted over 17 minutes back into the rectum. He has a few small scattered diverticuli throughout the sigmoid colon. There is no signs of active bleeding or infection. He has multiple polyps that are removed. He has 2 polyps at 80 cm. one is 1 cm and the other is is .75 cm. They are both pedunculated. They are removed with a hot snare. No clip applied. He has x2, flat, 5 mm polyps 1 at 60 cm and the other at 50 cm. These are both removed with a cold biting forcep. He has another polyp at 20 cm. This is a 1 cm polyp that is pedunculated. It is removed with a hot snare. All specimens are retrieved and no bleeding is noted. The scope was removed and the patient was woken up and taken back to Same day surgery in stable condition. The patient tolerated the procedure well and there were no immediate complications. Follow up: The patient should follow up in 3-5years, path pd, unless they develop changes in bowel habits or other new gastrointestinal complaints.
--- NOTE | 2021-12-02 11:43 | PDOC.DSDIS_ITS ---
Discharge Plan Disposition Patient Disposition: HOME Condition: Good Discharge Details Reason For Visit: Colon scope/colonoscopy Attending Provider: Maryjo Melara Primary Care Provider: Delma Dos Santos Home Meds and New Rx's Prescriptions: Continued vitamin B complex [B Complex 1] tablet 1 tab PO DAILY 0RF acetaminophen 500 mg tablet 1,500 mg PO ONCE PRN0RF omeprazole magnesium [Prilosec OTC] 20 MG tablet,delayed release (DR/EC) 20 mg PO DAILY 0RF multivitamin [Once Daily] 1 EACH tablet 1 tab PO DAILY 0RF Discontinued polyethylene glycol 3350 17 gram/dose powder 238 g PO ONCE Qty: 238 0RF Rx Instructions: take per colonoscopy instructions bisacodyl [Dulcolax (bisacodyl)] 5 mg tablet,delayed release (DR/EC) 5 mg PO ONCE Qty: 4 0RF Rx Instructions: take per colonoscopy instructions ibuprofen 800 mg tablet 400 mg PO TID 0RF Discharge Instructions Additional Instructions: DSU Colonoscopy Post- Op Instructions Instructions for Everyone who is given Anesthesia: For your safety, please do the following for the next twenty-four (24) hours: *Do Not operate a motor vehicle (car, truck, motorcycle, etc.) *Do Not drink alcoholic beverages or use any recreational drugs for the first 24 hours or while taking pain medications. The medications in your body may have a reaction that can be dangerous. *Do Not make any important decisions or sign any important papers. Findings:multiple polyps diverticula- minor Follow up: My office will send a letter in 2 to 3 weeks time detailing the type of polyps and when to repeat the colonoscopy, most likely in 3 -5 years. -Take as multiple polyps removed today, no aspirin or NSAIDs for the next 5 days; Tylenol is okay. 1. No lifting over 20 pounds or strenuous activity for the first 24 hours after your procedure. After 24 hours there are no restrictions on your activity but you may feel fatigued for a few days. 2. After you arrive home you may have a light meal and return to your normal diet as you can tolerate it without feeling sick to your stomach. 3. You may have a bloated, gaseous feeling in your belly (abdomen) after a colonoscopy. Passing gas and belching will help. Walking or lying down on your left side with your knees flexed may relieve the discomfort. Call the office at [phone] (Office) or [phone] (Hospital) right away if you notice any of the following: a.Vomiting of blood or ?coffee ground stools?. b.Rectal bleeding 1Tbsp, blood clots or continuous bleeding. c.Severe belly (abdominal) pain. d.A hard distended belly (abdomen) and an inability to pass gas. 4. Please don?t expect to have a normal BM (bowel movement) for 2-3 days after your procedure. 5. If there are questions regarding the findings of your procedure, please contact your doctor 6. If you are unable to contact your doctor with a problem, contact the hospital at [phone]. 7. Continue all your regular medications unless directed otherwise. I understand the above instructions and have no questions. Signature of Patient or Adult Escort Name of Responsible Adult Escort Signature of Nurse Date/Time Activity:: See above Diet:: See above Discharge Orders Discharge Orders: Discharge Order (Routine); Ordered 12/02/21 Ordered By: Maryjo Melara DS: Diagnosis Discharge Diagnosis (1) Villous adenoma of left colon: Status: Acute (2) Diverticula of colon: Status: Acute
[2021-12-03 07:18] VITALS: BP 108/67; PULSE 48; RESP 16; TEMP 36.6; O2SAT 97
[2021-12-03] MEDS: Lactated Ringers 1,000 ML 80 ML IV (07:33)
--- NOTE | 2021-12-03 08:10 | W.ANESPRE ---
General Info Date of Service Date Performed: 12/03/21 Height: 5 ft 10 in Weight: 101.6 kg Body Mass Index (BMI): 32.1 Surgical Procedure: Operation Date: 12/03/21 08:20 Proposed Procedure Side Surgeon cindy Melara, DO Meds Allergies and Home Medications Allergies Allergy/AdvReac Type Severity Reaction Status Date / Time dextromethorphan Allergy Severe Anaphylaxis Verified 12/03/21 07:16 [From [facility] NyQuil Cold/Flu Liquicap] shellfish derived Allergy Severe Anaphylaxis, Verified 12/03/21 07:16 hives doxylamine AdvReac Severe Anaphylaxis Verified 12/03/21 07:16 [From [facility] NyQuil Cold/Flu Liquicap] Home Medication Medication Instructions Recorded multivitamin (Once Daily) 1 tab PO DAILY 03/23/17 omeprazole magnesium 20 mg 20 mg PO DAILY 05/02/17 tablet,delayed release (Prilosec OTC) vitamin B complex (B Complex 1) 1 tab PO DAILY 09/24/18 acetaminophen 500 mg tablet 1,500 mg PO ONCE PRN tab 05/14/20 ibuprofen 800 mg tablet 400 mg PO TID 04/29/21 Current Visit Medications: Current Medications Generic Name Dose Route Start Last Admin Trade Name Freq PRN Reason Stop Dose Admin Hyoscyamine Sulfate 0.125 mg 12/03/21 06:00 Hyoscyamine 0.125 Mg Sl/Oral/Chew SL 12/03/21 16:00 DIRECTED PRN Ringer's Solution 1,000 mls @ 80 mls/hr 12/03/21 06:00 12/03/21 07:33 IV 01/01/22 23:59 80 mls/hr INFUSION JES Administration IV Miscellaneous Supplies 1 each 12/03/21 06:00 Iv Access IV 01/01/22 23:59 DIRECTED JES Ondansetron HCl 4 mg 12/03/21 06:00 Ondansetron 4 Mg/2 Ml Vial IVP 12/03/21 16:00 Q4H PRN PRN Nausea / Vomiting Sodium Chloride 0 ml 12/03/21 06:00 Normal Saline Flush 10 Ml Syr IV 01/01/22 23:59 PRN PRN Sodium Chloride 0 ml 12/03/21 06:00 Normal Saline 10 Ml Vial IJ 01/01/22 23:59 DIRECTED PRN Sterile Water 0 ml 12/03/21 06:00 Water,Injection,Sterile 10 Ml Vial IJ 01/01/22 23:59 DIRECTED PRN PFSH Active Problems Active Problems: Problem Status Onset Code Villous adenoma of left colon D37.4 Second degree burn of multiple sites of lower extremity T24.299A Screening for colon cancer Z12.11 Pes anserine bursitis M70.50 Tear of medial collateral ligament of left knee 01/27/20 S83.412A Acute medial meniscus tear of left knee 01/27/20 S83.242A Torn ACL (anterior cruciate ligament) 01/27/20 S83.519A Recurrent tonsillitis J03.91 Reflux esophagitis K21.0 Tonsil stone J35.8 Fatigue R53.83 Hyperlipidemia E78.5 Medical History Medical History Former smoker Hyperlipidemia Past history of chewing tobacco use Tear of medial collateral ligament of left knee (01/27/20) Tubular adenoma of colon (10/19/18) Dr Beltrán, repeat colo 3 years Umbilical hernia Surgical History Surgical History Acute medial meniscus tear of left knee (01/27/20) Status post arthroscopy with partial medial meniscectomy and debridement of torn ACL: 05/18/2020 H/O colonoscopy (10/19/18) 10/19/[address] Beltrán, tubulovillous adenoma, repeat in three years. H/O umbilical hernia repair (05/03/17) Dr beltrán History of esophagogastroduodenoscopy (EGD) (10/19/18) 10/19/18 Dr Beltrán, reflux esophagitis Tobacco Smoking/Tobacco Use Status: Former Tobacco Use Tobacco: How many years used: 35 Alcohol Alcohol Intake: current Alcohol intake frequency: holidays/special occasions only Substance Use Substance use: Never Substance use type: does not use Vital Signs and Lab Results Vital Signs Most Recent Vital Signs in EMR: Most Recent Vital Signs Temp Pulse Resp BP Pulse Ox 36.6 C 48 L 16 108/67 97 12/03/21 07:18 12/03/21 07:18 12/03/21 07:18 12/03/21 07:18 12/03/21 07:18 Lab Results Blood Type / Crossmatch: No Data to Display Complete Blood Count: No Data to Display Complete Metabolic Panel: Sodium Level 140 mmol/L (136-145) 11/19/21 08:45 11/19/21 Potassium Level 4.3 mmol/L (3.5-5.1) 11/19/21 08:45 11/19/21 Chloride Level 104 mmol/L (98-107) 11/19/21 08:45 11/19/21 Carbon Dioxide Level 26.5 mmol/L (21.0-32.0) 11/19/21 08:45 11/19/21 Blood Urea Nitrogen 14 mg/dL (7-18) 11/19/21 08:45 11/19/21 Creatinine 1.0 mg/dL (0.70-1.30) 11/19/21 08:45 11/19/21 Estimated GFR/1.73 m2 >= 60.00 (mL/min/1.73m2) 11/19/21 08:45 11/19/21 Calcium Level 8.7 mg/dL (8.5-10.1) 11/19/21 08:45 11/19/21 Albumin 3.8 g/dL (3.4-5.0) 11/19/21 08:45 11/19/21 Glucose Level 95 mg/dL (74-106) 11/19/21 08:45 11/19/21 Liver Function Panel: Alanine Aminotransferase (ALT/SGPT) 37 U/L (16-63) 11/19/21 08:45 11/19/21 Aspartate Amino Transf (AST/SGOT) 19 U/L (15-37) 11/19/21 08:45 11/19/21 Coagulation Panel: No Data to Display Cardiac Panel: No Data to Display Arterial Blood Gas: No Data to Display Venous Blood Gas: No Data to Display Pancreas Panel: No Data to Display Thyroid Panel: No Data to Display Infectious Disease: Coronavirus (COVID-19)(PCR) Negative (Negative) 12/01/21 08:21 12/01/21 Coronavirus 2019 Source Nasal/Nares 12/01/21 08:21 12/01/21 Blood Cultures: No Data to Display Toxicology Panel: No Data to Display Anesthesia Assessment and Plan Anesthesia History Personal History: No History of Anesthesia Complications Family History: No Family History of Anesthesia Complications Exercise Tolerance Exercise Tolerance: Metabolic Equivalents>4 Pertinent Negatives Pertinent Negatives: No Major Cardiovascular Symptoms or Complaints and No Major Pulmonary Symptoms or Complaints Cardiac & Pulmonary Exam Cardiac Exam: Normal S1/S2 Heart Sounds Pulmonary Exam: Clear Bilateral Breath Sounds Implantable Cardiac Device Does patient have a Pacemaker or an ICD?: No Airway Exam Known Difficult Airway: No Mallampati Class: 2 Mouth Opening: Normal (> 3cm) Thyromental Distance: Greater than 3 cm Facial Hair: Full Oquendo (Partial Oquendo) Neck Range of Motion: Full ROM Neck Circumference: Normal Teeth Condition: Normal Dentition ASA Classification ASA Score: ASA 2 Emergency Case?: No NPO Status NPO Status: NPO Clears >2 hours, Solids >8 hours Anesthesia Plan Resuscitation Status: Full Code Anesthesia Technique: General Anesthesia Airway Planned: Natural Airway Monitors Used: Standard Monitors
[2021-12-03 08:13] VITALS: BMI 32.1
--- NOTE | 2021-12-03 08:36 | BOWEL_PTH ---
PATIENT: Tushar Genao LOC: [facility] U#:[id number] AGE/SX: 51/M ROOM: RE12/03/[address]: Maryjo Melara : 1970 BED: DIS: 12/03/2021 SPEC #: [id number] RECD: 12/03/21 12:51 STATUS: PO [facility] #: [id number] MIA: 12/03/21 08:[address]: Maryjo Melara DEPT: Surgical Specimen RECD BY: Rubina Jc ENTERED: 12/03/21 12:53 SP TYPE: Bowel OTHR DR: Delma Dos Santos Tissues: 1 - BIOPSY BOWEL 2 - BIOPSY BOWEL 3 - BIOPSY BOWEL 4 - BIOPSY BOWEL Procedures: GROSS AND MICRO LEVEL 4 Comments: [id number]
[2021-12-03 09:05] VITALS: BP 118/69; PULSE 40; RESP 16; TEMP 36.4; O2SAT 97
[2021-12-03 09:10] VITALS: BP 127/78; PULSE 43; RESP 14; TEMP 36.4; O2SAT 98
[2021-12-03 09:15] VITALS: BP 127/78; PULSE 43; RESP 14; TEMP 36.4; O2SAT 98
[2021-12-03 09:24] VITALS: BP 124/85; PULSE 45; RESP 16; TEMP 36.3; O2SAT 97
--- NOTE | 2021-12-03 09:46 | W.ANESPOSTOP ---
Postoperative Evaluation Date, Time and Location Date Performed: 12/03/21 Time Performed: 09:20 Patient Location: PACU Vital Signs Most Recent Imported Vital Signs: Most Recent Vital Signs Temp Pulse Resp BP Pulse Ox 36.3 C L 45 L 16 124/85 97 12/03/21 09:24 12/03/21 09:24 12/03/21 09:24 12/03/21 09:24 12/03/21 09:24 Pain Score Most Recent Pain Score: Most Recent Pain Score Pain Level 0 12/03/21 09:24 Assessment Mental Status: Awake (Alert & Oriented to Patient Baseline) Airway and Respiratory Function: Patent airway with normal (patient baseline) respiratory exam Cardiovascular Function: Hemodynamically Stable Hydration Status: Adequately Hydrated Nausea & Vomiting: No Nausea or Vomiting Pain: Pt. Denies Any Pain Peripheral Nerve Block: Patient did not receive a nerve block
[2021-12-03 09:52] VITALS: BP 128/79; PULSE 38; RESP 16; TEMP 36.4; O2SAT 97
== END 2021-12-03 10:25 | disposition home or self-care (01) ==
LOC: SUR 07:07
PROVIDERS: PCP Nurse Practitioner Family; Visit Provider Surgery
PROC: 0DJD8ZZ Inspection of Lower Intestinal Tract, Via Natural or Artificial Opening Endoscopic (ICD-10-PCS; CPT 45378; principal; 2021-12-03 08:15)
DX: Z09 Encounter for follow-up examination after completed treatment for conditions other than malignant neoplasm (principal); Z86.010 Personal history of colon polyps; K57.30 Diverticulosis of large intestine without perforation or abscess without bleeding; K51.40 Inflammatory polyps of colon without complications; D12.4 Benign neoplasm of descending colon; K63.5 Polyp of colon
CPT/HCPCS: 45385; 45380; 88305; 87624; J2001; J2704

== ENCOUNTER 2022-05-24 10:32 | Emergency (ER) | payer BC, SELFPAY ==
[2022-05-24 10:42] VITALS: BP 136/87; PULSE 84; RESP 16; TEMP 36.2; O2SAT 97
--- NOTE | 2022-05-24 11:15 | DI.RAD_ITS ---
Exam(s) XR FINGER RT LITTLE EXAM: XR FINGER RT LITTLE CLINICAL HISTORY: hit tip with hammer, r/o fx/fb. TECHNIQUE: 2D digital imaging was performed of the right finger. Three views were obtained. PA/AP, oblique, and lateral views were obtained. COMPARISON: No exams were available for comparison FINDINGS: BONES: No acute fracture is present. No bony destructive lesion is seen. JOINTS: No dislocation present. SOFT TISSUE: There is a soft tissue laceration at the tip of the finger. No radiopaque foreign body is identified. IMPRESSION: No acute fracture or dislocation. DATA REPOSITORY: RADIATION DOSE DELIVERED:
--- NOTE | 2022-05-24 11:19 | ED.GENADUL_ITS ---
Discharge Plan Disposition Patient Disposition: HOME Condition: Stable Discharge Details Clinical Impression: Finger laceration Primary Care Provider: Delma Dos Santos ED Provider: Tressa Perez Home Meds and New Rx's Prescriptions: New cephalexin 500 mg capsule 500 mg PO TID 3 Days Qty: 9 0RF Continued vitamin B complex [B Complex 1] tablet 1 tab PO DAILY acetaminophen 500 mg tablet 1,000 mg PO DAILY omeprazole magnesium [Prilosec OTC] 20 MG tablet,delayed release (DR/EC) 20 mg PO DAILY magnesium oxide 500 mg Tablet multivitamin [Once Daily] 1 EACH tablet 1 tab PO DAILY Discharge Instructions Instructions: Finger Laceration (ED) Additional Instructions: Keep wound clean and dry. Cover wound with bandage if risk of contamination. Otherwise you can keep the wound open to air if resting at home to allow edges to dry and heal. Keep the finger splint in place if risk of injury. A prescription for antibiotics has been sent electronically to your pharmacy to take as directed until finished. Return to the emergency department in 7 days for suture removal. Return to the emergency department anytime if you develop any fever, redness, swelling or pain around the area. Discharge Data Discharge Physician: Tressa Perez Medical Decision Making 51-year-old [id number] male presents with laceration to his right fifth finger after hit with a hammer 30 minutes prior to arrival. There is a 2 cm linear laceration extending from the volar aspect of the tip of the right fifth finger extending from the radial to ulnar aspect and around to behind the nail. Majority of nail remains attached to nail bed. There is no obvious injury to the nail. There is no obvious bony deformity or foreign body. He is neurovascularly intact. We will give a Boostrix and refer for x-rays. He declines pain medication. X-ray reviewed and negative. 4 sutures placed on volar aspect of finger. No additional sutures placed between laceration behind distal end of nail as the majority of nail remains attached to the nailbed. The area was soaked in Betadine prior to suture placement and cleansed and topical antibiotic and tube gauze dressing placed after suture placement. A protective plastic finger splint placed over finger. Prophylactic antibiotics provided. Advised to return to the ED in 7 days for suture removal. Usual and customary return precautions given prior to discharge. Medical Records Medical records reviewed: Yes I reviewed the patient's medical records. Imaging Data Radiologic Study: Radiologist's impression: XR FINGER RT LITTLE CLINICAL HISTORY: ? hit tip with hammer, r/o fx/fb.? TECHNIQUE:? 2D digital imaging was performed of the right finger.? Three views were obtained.? PA/AP, oblique, and lateral views were obtained. COMPARISON:? No exams were available for comparison FINDINGS: BONES: No acute fracture is present. No bony destructive lesion is seen. JOINTS: No dislocation present. SOFT TISSUE: There is a soft tissue laceration at the tip of the finger.? No radiopaque foreign body is identified. IMPRESSION: No acute fracture or dislocation.? HPI General Mode of arrival: ambulatory . Date/Time Provider Initiated Documentation: 05/24/22 10:56 . Limitations to Documentation: no limitations . Information obtained by: patient . HPI Narrative: Patient is a 51-year-old right hand dominant male who presents with injury to his right fifth fingertip after hit with a hammer accidentally while working with sheet-metal 30 minutes prior to arrival. He is unsure of his tetanus status. Related Data Home Medications Medication Instructions Recorded Confirmed multivitamin (Once Daily tablet) 1 tab PO DAILY 03/23/17 05/24/22 omeprazole magnesium 20 mg 20 mg PO DAILY 05/02/17 05/24/22 tablet,delayed release (Prilosec OTC) vitamin B complex (B Complex 1 1 tab PO DAILY 09/24/18 05/24/22 tablet) acetaminophen 500 mg tablet 1,000 mg PO DAILY 05/14/20 12/03/21 cephalexin 500 mg capsule 500 mg PO TID 3 days #9 caps 05/24/22 magnesium oxide 500 mg tablet mg 05/24/22 Previous Rx's Medication Instructions Recorded cephalexin 500 mg capsule 500 mg PO TID 3 days #9 caps 05/24/22 Allergies Allergy/AdvReac Type Severity Reaction Status Date / Time dextromethorphan Allergy Severe Anaphylaxis Verified 05/24/22 10:44 [From [facility] NyQuil Cold/Flu Liquicap] shellfish derived Allergy Severe Anaphylaxis, Verified 05/24/22 10:44 hives doxylamine AdvReac Severe Anaphylaxis Verified 05/24/22 10:44 [From [facility] NyQuil Cold/Flu Liquicap] General Stated Complaint: Laceration JAIMIE: 4 Review of Systems All systems reviewed & are unremarkable except as noted in HPI and below Constitutional Constitutional: Reports as per HPI, Denies chills and Denies fever(s) Eyes Eyes: Denies blurry vision ENT Ears, Nose, Mouth, and Throat: Denies dizziness, Denies sore throat and Denies throat swelling Cardiovascular Cardiovascular: Denies chest pain and Denies dyspnea Respiratory Respiratory: Denies cough and Denies dyspnea Gastrointestinal Gastrointestinal: Denies abdominal pain, Denies diarrhea and Denies vomiting Genitourinary Genitourinary: Denies hematuria and Denies dysuria Musculoskeletal Musculoskeletal: Denies back pain and Denies numbness Comments: R 5th fingertip injury Integumentary/Breasts Skin/Breast: Denies lesions and Denies rash Neurologic Neurologic: Denies dizziness, Denies localized weakness and Denies numbness Allergic/Immunologic Allergic/Immunologic: Denies throat swelling PFSH All Active Problems (Updated 05/24/22 @ 13:28 by Tressa Perez DO) Finger laceration (Acute) Sessile colonic polyp (Acute ~12/03/21) Diverticula of colon (Acute) Villous adenoma of left colon (Acute) 2018 Second degree burn of multiple sites of lower extremity (Acute) Screening for colon cancer (Acute) Pes anserine bursitis (Acute) Tear of medial collateral ligament of left knee (Acute 01/27/20) Acute medial meniscus tear of left knee (Acute 01/27/20) Status post arthroscopy with partial medial meniscectomy and debridement of torn ACL: 05/18/2020 Torn ACL (anterior cruciate ligament) (Acute 01/27/20) Status post arthroscopy with partial medial meniscectomy and debridement of torn ACL: 05/18/2020 Recurrent tonsillitis (Acute) Reflux esophagitis (Acute) Tonsil stone (Acute) Fatigue (Acute) Hyperlipidemia (Chronic) Medical History (Updated 05/24/22 @ 13:28 by Tressa Perez DO) Past history of chewing tobacco use Tubular adenoma of colon (10/19/18) Dr Beltrán, repeat colo 3 years Umbilical hernia Surgical History (Updated 12/08/21 @ 11:40 by Nancy Campbell RN) H/O colonoscopy (12/03/21) 10/19/[address] Beltrán, tubulovillous adenoma, repeat in three years. H/O umbilical hernia repair (05/03/17) Dr beltrán History of esophagogastroduodenoscopy (EGD) (10/19/18) 10/19/18 Dr Beltrán, reflux esophagitis Social History Smoking/Tobacco Use Status: Former Tobacco Use Quit Date: 01/07/14 Tobacco: How many years used: 35 Smoking risk assessment performed?: Yes Alcohol Intake: current Alcohol Intake frequency: holidays/special occasions only Drug use: Never Substance use type: does not use Current gender identity: male Do you feel safe at home: Yes Do you feel safe in your relationship?: Yes Exam Const General: cooperative, healthy appearing and no acute distress HENMT Head: normal to inspection Mouth: oral mucosae normal Eyes General: appearance normal, both eyes and all related structures Neck Neck: normal visual inspection Resp Effort & Inspection: normal respiratory effort and able to speak in complete sentences Cardio Rate: regular rate Skin General skin exam: no rashes or lesions noted Neuro General: patient alert, patient awake and patient oriented x3 Motor: muscle tone normal throughout Extrem Hand/finger images: 1. 2 cm flap laceration extending from the radial aspect of the tip of the fifth finger to the ulnar aspect and around to the area just behind the tip of the nail. Psych Appearance: grossly normal Affect: normal affect Course Vital Signs Vital signs: Vital Signs Temperature 97.2 F L 05/24/22 10:42 Pulse 84 05/24/22 10:42 Respiratory Rate 16 05/24/22 10:42 Blood Pressure 136/87 05/24/22 10:42 Pulse Oximetry 97 05/24/22 10:42 Temperature 97.2 F L 05/24/22 10:42 Temperature Source Temporal Artery Scan 05/24/22 10:42 Pulse 84 05/24/22 10:42 Respiratory Rate 16 05/24/22 10:42 Respiratory Effort Non-Labored 05/24/22 10:45 Blood Pressure 136/87 05/24/22 10:42 Blood Pressure Position Sitting 05/24/22 10:42 Pulse Oximetry 97 05/24/22 10:42 Oxygen Delivery Method Room Air 05/24/22 10:42 Oxygen Flow Rate 0 05/24/22 10:42 Pain Level 5 05/24/22 10:42 Procedures Laceration Laceration 1: Site: hand (5th finger) Side (If applicable): right Size (cm): 2 Description: flap Depth: simple, single layer Local Anesthetic: Lidocaine 1% Amount of anesthesia used (mL): 4 Pre-repair: wound explored Skin layer closed with: nylon Number of sutures: 4 Technique: simple, interrupted
[2022-05-24] MEDS: Bacitracin 1 PACKET (13:12)
[2022-05-24] MEDS: Cephalexin 500 MG CAP PO (13:12)
[2022-05-24 13:36] VITALS: BP 136/87; PULSE 84; RESP 16; TEMP 36.2; O2SAT 97
== END 2022-05-24 13:39 | disposition home or self-care (01) ==
PROVIDERS: Emergency Provider Physician Assistant; PCP Nurse Practitioner Family
DX: S61.216A Laceration without foreign body of right little finger without damage to nail, initial encounter (principal); W22.8XXA Striking against or struck by other objects, initial encounter
CPT/HCPCS: 12001; 90471; 99284; 73140; 99283; J3490

== ENCOUNTER 2022-11-25 13:18 | Outpatient (REF) | payer BC, SELFPAY ==
[2022-11-25 16:09] LABS: ALT 29 U/L (16-63); AST 26 U/L (15-37); Albumin 3.7 g/dL (3.4-5.0); Alkaline Phosphatase 125 U/L (46-116); Anion Gap 5.3 mmol/L (3-11); BUN 14 mg/dL (7-18); Bilirubin, Total 0.4 mg/dL (0.2-1.0); CO2 29.7 mmol/L (21.0-32.0); CREATININE 1.1 mg/dL (0.70-1.30); Calcium 8.9 mg/dL (8.5-10.1); Calculated LDL 122 mg/dL (<100); Chloride 105 mmol/L (98-107); Cholesterol 190 mg/dL (<200); Estimated GFR 79.77 (mL/min/1.73m2); Glucose 90 mg/dL (74-106); HDL Cholesterol 42 mg/dL (40-60); Potassium 4.3 mmol/L (3.5-5.1); Sodium 140 mmol/L (136-145); TSH (W/Ref FT4) 2.41 uIU/mL (0.36-3.74); Total Protein 7.1 g/dL (6.4-8.2); Triglyceride 132 mg/dL (<150)
[2022-11-25 22:54] LABS: PSA, Screening 0.4 ng/mL (<=3.5)
== END 2022-11-25 13:19 | disposition home or self-care (01) ==
LOC: NCHCN 13:18
PROVIDERS: PCP Nurse Practitioner Family; Visit Provider Nurse Practitioner Family
DX: E78.2 Mixed hyperlipidemia (principal); Z00.00 Encounter for general adult medical examination without abnormal findings; N50.9 Disorder of male genital organs, unspecified; L57.0 Actinic keratosis; Z12.5 Encounter for screening for malignant neoplasm of prostate
CPT/HCPCS: 80053; 80061; 84153; 84443

== ENCOUNTER 2023-01-31 14:00 | Emergency (ER) | payer BC, SELFPAY ==
[2023-01-31 14:06] VITALS: PULSE 72; RESP 18; TEMP 38.2; O2SAT 95
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
[2023-01-31 14:41] VITALS: RESP 20
== END 2023-01-31 16:28 | disposition home or self-care (01) ==
PROVIDERS: Emergency Provider Student in an Organized Health Care Education/Training Program; PCP Nurse Practitioner Family
DX: U07.1 COVID-19 (principal)
CPT/HCPCS: 99283; 99282

== ENCOUNTER 2024-12-02 12:43 | Outpatient (REF) | payer BC, SELFPAY ==
--- OUTSIDE RECORDS SUMMARY | 2024-12-02 12:46 | XMS_ITS | Clinical Summary ---
Author Organization [facility] Address [facility] [place] [address] Care Team Providers Care Kiss Setter Hand Name Role Phone NewtongracychantalDelma Duffy Primary Care Provider Allergies Active Allergy Reactions Criticality Noted Date Comments Frxrhubdrn-Nn-Ccdqafynouht n 07/13/2017 Other Reaction(s): Not available Iodine Hives 01/27/2020 Allergic to the iodine in shellfish Shellfish Derived High 12/29/2023 Other Reaction(s): Not available Medications Medication Sig Dispensed Refills Start Date End Date Status acetaminophen (Tylenol Arthritis Pain) 650 mg ER tablet Take 2 tablets every 8 hours by oral route. Active omeprazole (PriLOSEC) [address] capsule daily. 12/11/2014 Active multivitamin (THERAGRAN) Tablet Take 1 tablet by mouth daily. Active fluorouraciL (EFUDEX) 5 % Cream Apply thin layer topically once daily basis to face for 1 week on and 3 weeks off. Repeat for a total of 3 cycles. 40 g 12/29/2023 Active Active Problems No known active problems Social History Tobacco Use Types Packs/Day Years Used Date Smoking Tobacco: Former Cigarettes 2 40 0 10/23/1973 - 10/23/2013 Smokeless Tobacco: Never Tobacco Cessation:Counseling Given: Not Answered Sex and Gender Information Value Date Recorded Sex Assigned at Not on file Gender Identity Not on file Sexual Orientation Not on file Plan of Treatment Upcoming Encounters Date Type Department Care Team (Late st Contact Info) Description 12/20/2024 9:15 AM EST Office Visit Dermatology at [place] [address] [place] [address] Dario Almonte MD [address], [place] [address] Health Maintenance Due Date Last Done Comments CT Colonography 1968 Colonoscopy 1968 Colorectal Cancer Screening 1968 FIT DNA 1968 FIT 1968 Sigmoidoscopy (10 year) with FIT yearly 1968 Sigmoidoscopy 1968 HIV screen 1986 Hepatitis C Screening 1986 Lipid Screening 1986 Hepatitis B vaccine (0-59 yrs) (1) 1987 Tetanus/Diphtheria/Pertussis Vaccines (1 - Tdap) 08/16 Pneumoccocal Vaccine: 50+ (1 of 1 - PCV) 2018 Zoster vaccine (1 of 2) 2018 Advance Directive 2023 Covid-19 Vaccine (1 - season) 2024 Influenza (Flu) vaccine (1 o f 1 - Influenza standard series) 06/23/2024 Care Teams Kiss Setter Hand Relationship Specialty Start Date End Date Delma Dos Santos [address] [place] [address] PCP - General Family Medicine 12/29/23
--- OUTSIDE RECORDS SUMMARY | 2024-12-02 12:47 | XMS_ITS | Encounter Summary ---
[place] [address] Care Team Providers Care Mail Delivery Supervisor Name Role Phone Delma Dos Santos Primary Care Provider [phone] Encounter Details Date Type Department Care Team (Latest Contact Info) Description 12/29/2023 Travel Social History Tobacco Use Types Packs/Day Years Used Date Smoking Tobacco: Former Cigarettes 2 40 0 10/23/1973 - 10/23/2013 Smokeless Tobacco: Never Sex and Gender Information Value Date Recorded Sex Assigned at Not on file Gender Identity Not on file Sexual Orientation Not on file documented as of this encounter Plan of Treatment Upcoming Encounters Date Type Department Care Team (Late st Contact Info) Description 12/20/2024 9:15 AM EST Office Visit Dermatology at [place] [address] [place] [phone] Dario Almonte MD [address] [facility], [place] [address] documented as of this encounter Visit Diagnoses Not on filedocumented in this encounter Care Teams Mail Delivery Supervisor Relationship Specialty Start Date End Date Delma Dos Santos [address] [place] [address] PCP - General Family Medicine 12/29/23 documented as of this encounter
--- OUTSIDE RECORDS SUMMARY | 2024-12-02 12:47 | XMS_ITS | Encounter Summary ---
Author Organization [facility] [place] [address] Care Team Providers Care Insert Operator Name Role Phone Delma Dos Santos Primary Care Provider [phone] Reason for Visit * Reason Comments Skin Check * Consultation (Routine) - Closed Specialty Diagnoses / Procedures Referred By Contac t Referred To Contact Dermatology Diagnoses Disorder of the skin and subcutaneous tissue, unspecified Delma Dos Santos [address] [place] [address] Dario Almonte MD [address] [place] [address], [place] [address] Referral ID Status Reason Start Date Expiration Date Visits Re quested Visits Authorized [id number] Closed 12/06/2023 12/05/2024 1 1 Encounter Details Date Type Department Care Team (Late st Contact Info) Description 12/29/2023 9:15 AM EST Office Visit Dermatology at [address] [phone] Dario Almonte MD [address] [facility], [place] [address] [place] (actinic keratosis) Social History Tobacco Use Types Packs/Day Years Used Date Smoking Tobacco: Former Cigarettes 2 40 0 10/23/1973 - 10/23/2013 Smokeless Tobacco: Never Tobacco Cessation:Counseling Given: Not Answered Sex and Gender Information Value Date Recorded Sex Assigned at Not on file Gender Identity Not on file Sexual Orientation Not on file documented as of this encounter Progress Notes * Dario Almonte MD - 12/29/2023 9:15 AM EST Problem: 1. New patient, initial visit, skin lesions of concern 2. 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 Tushar presents today for evaluation of some skin lesions. 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 There is a family history of sun damage/skin cancers in his father. He is referred today byhis PCP for a skin checkup. He has had actinic keratoses treated in the past with liquid nitrogen Physical examination reveals a pleasant 53-year-old gentleman who is freckled blue-eyed with type II Mathis pigmentation. He has areas of likely actinic keratoses versus early Salinas's disease onthe lateral arms. He has diffuse actinic damage on the forehead and cheeks. Otherwise examination of the head and the neck the chest the back the hands arms forearms thighs and calves is benign. Assessment plan: Actinic keratoses, facial 1. Begin 5-FU 5% cream apply on a once daily basis to face for 1 week on 3 weeks off. Repeat for total of 3 cycles. Dispense 40 g with 0 refills. 2. Will call this into [facility] in [place] 3. Return to clinic in a year for repeat check. Actinic keratoses forearms and arms 1. LN 2 x 2 applied to each of 7 sites. CC: Delma Dos Santos APRN documented in this encounter Plan of Treatment Upcoming Encounters Date Type Department Care Team (Late st Contact Info) Description 12/20/2024 9:15 AM EST Office Visit Dermatology at [place] [address] [place] [address] Dario Almonte MD [address], [place] [address] documented as of this encounter Visit Diagnoses Diagnosis AK (actinic keratosis) Actinic keratosis documented in this encounter Care Teams Insert Operator Relationship Specialty Start Date End Date Delma Dos Santos [address] [place] [id number] PCP - General Family Medicine 12/29/23 documented as of this encounter
--- OUTSIDE RECORDS SUMMARY | 2024-12-02 12:47 | XMS_ITS | Encounter Summary ---
Author Organization [facility] [place] [address] Care Team Providers Care Cable Testers Helper Name Role Phone Delma Dos Santos Primary Care Provider [phone] Encounter Details Date Type Department Care Team (Late st Contact Info) Description 12/29/2023 Refill Dermatology at [address] [phone] Kezia Alcaraz RN Social History Tobacco Use Types Packs/Day Years [...] 9:15 AM EST Office Visit Dermatology at [address] [phone] Dario Almonte MD [address] [place] [address], [place] [address] documented as of this encounter Visit Diagnoses Not on filedocumented in this encounter Care Teams Cable Testers Helper Relationship Specialty Start Date End Date Delma Dos Santos [address] [place] [address] PCP - General Family Medicine 12/29/23 documented as of this encounter
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
--- OUTSIDE RECORDS SUMMARY | 2024-12-02 12:48 | XMS_ITS | Encounter Summary ---
Author Organization [facility] Address [address] [place] [address] Care Team Providers Care Director Presales Name Role Phone [facility] Primary Care Provider [phone] Encounter Details Date Type Department Care Team (Late st Contact Info) Description 12/03/2021 Lab Requisition [facility] Pathology & Laboratory Medicine - [facility] [address] [place] [address] Maryjo Melara, DO [address] [place] [address] Neoplasm of uncertain behavior of colon; Diverticulosis of large intestine without perforation or abscess without bleeding Social History Tobacco Use Types Packs/Day Years Used Date Smoking Tobacco: Never Assessed Interpersonal Safety Answer Date Record ed Physically Hurt Never 05/24/2020 Verbally Threaten Not on file 05/24/2020 Sex and Gender Information Value Date Recorded Sex Assigned at Not on file Legal Sex Male 17:36 EST Gender Identity Not on file Sexual Orientation Not on file documented as of this encounter Plan of Treatment Not on file documented as of this encounter Procedures Procedure Name Priority Date/Time Associated Diagnosis Comments SURGICAL PATHOLOGY Today 12/03/2021 8: 36 EST Neoplasm of uncertain behavior of colon Diverticulosis of large intestine without perforation or abscess without bleeding documented in this encounter Results * SURGICAL PATHOLOGY (12/03/2021 8:36 EST) Note to Patient The following pathology results have been interpreted by your pathologist and may be available to you before your health provider has had the opportunity to review them. Please allow time for your provider to receive these results and explore management options, if applicable. 12/07/2021 10:03 [facility] Final Diagnosis A. COLON, 80 CMS, POLYP, BIOPSY: - Inflammatory polyp. B. COLON, 60 CMS, POLYP, BIOPSY: - Consistent with sessile serrated adenoma. C. COLON, 50 CMS, POLYP, BIOPSY: - Hyperplastic polyp. D. COLON, 20 CMS, POLYP, BIOPSY: - Hyperplastic polyp. 12/07/2021 10:03 [facility] Attestation By the signature below, the attending physician certifies that they have 1) personally conducted a gross and/or microscopic examination of the described specimen(s), and/or personally interpreted the results of laboratory testing of the described specimen(s), and 2) personally rendered or confirmed the above diagnosis. 12/07/2021 10:03 [facility] at 1003 Clinical History History of villous adenoma; polyps x4; minor divertic 12/07/2021 10:03 [facility] Gross Description A. Received in formalin labelled with proper patient identification (initials J, W) and polyp @ 80 cm is a single tovar-brown polyp, 0.6 x 0.5 x 0.5 cm. Bisected and entirely submitted in A1. B. Received in formalin labelled with proper patient identification (initials J, W) and polyp @ 60 cm is a tovar-diaz tissue, 0.5 x 0.2 x 0.1 cm. Entirely submitted in B1. C. Received in formalin labelled with proper patient identification (initials J, W) and polyp @ 50 cm are two tovar-brown tissues, 0.1 cm in greatest dimension and 0.3 x 0.2 x 0.1 cm. Entirely submitted in C1. D. Received in formalin labelled with proper patient identification (initials J, W) and polyp @ 20 cm is a tovar polyp, 0.4 x 0.2 x 0.2 cm. Entirely submitted in D1. MYLA MCKOY(ASCP) 12/06/2021 9:11 12/07/2021 10:03 [facility] Performing Lab [facility] 12/07/2021 10:03 [facility] Scanned Images 12/07/2021 10:03 EST [facility] Tissue ENTIRE COLON / Unknown 12/03/2021 8:36 EST 12/03/2021 16:17 EST Tissue specimen (specimen) COLON STRUCTURE / Unknown 12/03/2021 8:36 EST 12/03/2021 16:17 EST Tissue specimen (specimen) COLON STRUCTURE / Unknown 12/03/2021 8:36 EST 12/03/2021 16:17 EST Tissue specimen (specimen) COLON STRUCTURE / Unknown 12/03/2021 8:36 EST 12/03/2021 16:17 EST us Maryjo Melara DO PATHOLOGY ORDERABLES Final Re sult [facility] [address] [place] [address] documented in this encounter Visit Diagnoses Diagnosis 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
--- OUTSIDE RECORDS SUMMARY | 2024-12-02 12:48 | XMS_ITS | Encounter Summary ---
Author Organization [facility] Address [address] [place] [address] Care Team Providers Care Board Of Education Secretary Name Role Phone [facility] Primary Care Provider [phone] Reason for Referral * Consult (Routine) - Closed Specialty Diagnoses / Procedures Referred By Contact Referred To Contact Occupational Medicine Diagnoses Acute pain of left knee Ilana Cobos PA-C Phone: tel: fax: [facility] Occupational Medicine [address] [address] Phone: tel: fax: Referral ID Status Reason Start Date Expiration Date V isits Requested Visits Authorized [id number] Closed Specialty Services Required 01/27/2020 1 1 Question Answer Reason for Request: left knee pain after injury at work earlier today. xray examination reveals a small joint effusion. hinged knee brace placed. fitted with crutches. Reason for Visit * Reason Comments Injury Encounter Details Date Type Department Care Team (Late st Contact Info) Description 01/27/2020 14:00 EDT Walk-In [facility] - [place] [address] [place], [place] [address] Ilana Cobos PA-C [address] [place] [address] Acute pain of left knee (Primary Dx) Social History Tobacco Use Types Packs/Day Years Used Date Smoking Tobacco: Never Assessed Sex and Gender Information Value Date Recorded Sex Assigned at Not on file Legal Sex Male 17:36 EST Gender Identity Not on file Sexual Orientation Not on file COVID-19 Exposure Response Date Recorded In the last month, have you been in contact with someone who was confirmed or suspected to have Coronavirus / COVID-19? No / Unsure 01/27/2020 14:24 EDT documented as of this encounter Last Filed Vital Signs Vital Sign Reading Time Taken Comments Blood Pressure 141/96 01/27/2020 1436 EDT Pulse 93 01/27/2020 1436 EDT Temperature 36.5 ??C (97.7 ??F) 01/27/2020 1436 EDT Respiratory Rate 18 01/27/2020 1436 EDT Oxygen Saturation 97% 01/27/2020 1436 EDT Inhaled Oxygen Concentration - - Weight - - Height - - Body Mass Index - - documented in this encounter Patient Instructions * Patient Instructions* Ilana Cobos PA-C - 01/27/2020 14:00 EDT Images from the original note were not included. Wear the hinged knee brace and use crutches as directed. Rest, ice and elevate. Take ibuprofen as directed for discomfort. Follow-up with occupational medicine. [facility] Patient Instructions Knee Pain or Injury: Care Instructions Your Care Instructions Injuries are a common cause of knee problems. Sudden (acute) injuries may be caused by a direct blow to the knee. They can also be caused by abnormal twisting, bending, or falling on the knee. Pain, bruising, or swelling may be severe, and may start within minutes of the injury. Overuse is another cause of knee pain. Other causes are climbing stairs, kneeling, and other activities that use the knee. Everyday wear and tear, especially as you get older, also can cause knee pain. Rest, along with home treatment, often relieves pain and allows your knee to heal. If you have a serious knee injury, you may need tests and treatment. Follow-up care is a house part of your treatment and safety. Be sure to make and go to all appointments, and call your doctor if you are having problems. It's also a good idea to know your test resultsand keep a list of the medicines you take. How can you care for yourself at home? ?? Be safe with medicines. Read and follow all instructions on the label. ? If the doctor gave you a prescription medicine for pain, take it as prescribed. ? If you are not taking a prescription pain medicine, ask your doctor if you can take an alzu-hni-mosvyug medicine. ?? Rest and protect your knee. Take a break from any activity that may cause pain. ?? Put ice or a cold pack on your knee for 10 to 20 minutes at a time. Put a thin cloth between theice and your skin. ?? Prop up a sore knee on a pillow when you ice it or anytime you sit or lie down for the next 3 days. Try to keep it above the level of your heart. This will help reduce swelling. ?? If your knee is not swollen, you can put moist heat, a heating pad, or a warm cloth on your knee. ?? If your doctor recommends an elastic bandage, sleeve, or other type of support for your knee, wear it as directed. ?? Follow your doctor's instructions about how much weight you can put on your leg. Use a cane, crutches, or a walker as instructed. ?? Follow your doctor's instructions about activity during your healing process. If you can do mildexercise, slowly increase your activity. ?? Reach and stay at a healthy weight. Extra weight can strain the joints, especially the knees andhips, and make the pain worse. Losing even a few pounds may help. When should you call for help? Call 911 anytime you think you may need emergency care. For example, call if: ? You have symptoms of a blood clot in your lung (called a pulmonary embolism). These may include: ? Sudden chest pain. ? Trouble breathing. ? Coughing up blood. ??Call your doctor now or seek immediate medical care if: ? You have severe or increasing pain. ? Your leg or foot turns cold or changes color. ? You cannot stand or put weight on your knee. ? Your knee looks twisted or bent out of shape. ? You cannot move your knee. ? You have signs of infection, such as: ? Increased pain, swelling, warmth, or redness. ? Red streaks leading from the knee. ? Pus draining from a place on your knee. ? A fever. ? You have signs of a blood clot in your leg (called a deep vein thrombosis), such as: ? Pain in your calf, back of the knee, thigh, or groin. ? Redness and swelling in your leg or groin. ??Watch closely for changes in your health, and be sure to contact your doctor if: ? You have tingling, weakness, or numbness in your knee. ? You have any new symptoms, such as swelling. ? You have bruises from a knee injury that last longer than 2 weeks. ? You do not get better as expected. Where can you learn more? Go to https://www.Yo que Vos.ArmorText/Mems-IDealth or log into your [employer] account at [email or web address] Enter K195 in the search box to learn more about Knee Pain or Injury: Care Instructions. Current as of: April 17, 2019 Content Version: 12.2 ?? [id number] [employer]. Care instructions adapted under license by [facility]. If you have questions about a medical condition or this instruction, always askyour healthcare professional. [employer] disclaims any warranty or liability for youruse of this information. documented in this encounter Progress Notes * Pamela Branham LPN - 01/27/2020 1400 EDT Pt in for lft knee injury. Pt did see daughter who is a PA at [employer] [facility] [employer]. Not over 60 and not immunocompromised per pt. No known covid-19 contact.no travel.no cough,fever,SOB,n/v or diarrhea.Maria Ines PONCE * Ilana Cobos PA-C - 01/27/2020 1400 EDT [facility] Express [facility] Chief Complaint(s): Injury HPI: This is a 49-year-old male who presents to express care reporting left knee pain. Patient states that he was at work just prior to arrival. 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 Symptoms are worse with certain movements and ambulation. Denies previous knee injury or trauma in the past. Has not applied ice or taken any medications for the symptoms. I have reviewed current problem list, current medications and allergies ROS: Review of Systems Constitutional: Negative. HENT: Negative. Respiratory: Negative. Musculoskeletal: Left knee pain Skin: Negative. Objective: Examination: Vitals: BP (!) 141/96 Pulse 93 Temp 36.5 ??C (97.7 ??F) Resp 18 SpO2 97% Physical Exam Constitutional: He appears well-developed. HENT: Head: Normocephalic. Musculoskeletal: Examination of the left knee reveals moderate edema. There is no erythema or warmth. There is tenderness along the medial compartment of the knee. Decreased ROM. Negative ant/post drawer sign. Exam is somewhat limited secondary to the patient's level of pain. Able to straight leg raised off the stretcher. Distal sensation intact. Pulses intact. Neurological: He is alert. Skin: Skin is warm and dry. Nursing note and vitals reviewed. Procedures Assessment & Plan: 1. 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 Xray examination reveals a small jointeffusion as reviewed by myself and the radiologist. The patient is given ibuprofen 600mg po. A hinged knee brace is placed. The patient is fitted with crutches for ambulation. - XR KNEE LEFT 4 OR MORE VIEWS - ibuprofen (MOTRIN) tablet 600 mg Questions and concerns were answered. Patient expressed understanding of plan. documented in this encounter Plan of Treatment Scheduled Orders Name Type Priority Associated Diagnoses Orde r Schedule XR KNEE LEFT 4 OR MORE VIEWS Imaging Routine Acute pain of left knee Ordered: 01/27/2020 Scheduled Referrals Name Type Priority Associated Diagnoses Order Schedule AMB REFERRAL TO OCCUPATIONAL MEDICINE Outpatient Referral Routine Acute pain of left knee Ordered: 01/27/2020 documented as of this encounter Procedures Procedure Name Priority Date/Time Associated Diagnosis Comments XR KNEE LEFT 4 OR MORE VIEWS 01/27/2020 15:14 EDT documented in this encounter Results * XR KNEE LEFT 4 OR MORE VIEWS (01/27/2020 15:14 EDT) Anatomical Region Laterality Modality Lower Extremities Left Other 01/27/2020 15:1 0 EDT Narrative 01/27/2020 15:14 EDT ? EXAM: RADIOLOGY EXPRESS CARE/EXP CARE KNE EX. D/ (1509) ? CLINICAL INFORMATION: ? MEDIAL KNEE PAIN M25.562 ? INDICATION: MEDIAL KNEE PAIN M25.562. ? COMPARISON: None. ? TECHNIQUE: 4+ views of the left knee were obtained. ? FINDINGS: ? A small knee joint effusion is present. The tibiofemoral and ? patellofemoral joints are well-maintained. Bone density is normal. No ? fracture or osteonecrosis. ? IMPRESSION: Small knee joint effusion. ? REPORT SIGNED IN OTHER VENDOR SYSTEM 01/27/2020 ?Reported By: Dario Neumann MD ? CC: ? Transcribed Date/Time: 01/27/2020 (7676) ? Loop Sewer: ? Printed Date/Time: 01/27/2020 (1120) ? PAGE 1 ? Signed Report ? Procedure Note Dario Neumann MD - 01/27/2020 EXAM: RADIOLOGY EXPRESS CARE/EXP CARE KNE EX. D/ (1509) CLINICAL INFORMATION: MEDIAL KNEE PAIN M25.562 INDICATION: MEDIAL KNEE PAIN M25.562. COMPARISON: None. TECHNIQUE: 4+ views of the left knee were obtained. FINDINGS: A small knee joint effusion is present. The tibiofemoral and patellofemoral joints are well-maintained. Bone density is normal.No fracture or osteonecrosis. IMPRESSION: Small knee joint effusion. REPORT SIGNED IN OTHER VENDOR SYSTEM 01/27/2020 Reported By: Dario Neumann MD CC: Transcribed Date/Time: 01/27/2020 (815) Loop Sewer: Printed Date/Time: 01/27/2020 (3763) PAGE 1 Signed Report Ilana Cobos PA-C IMG DIAGNOSTIC IMAGI NG ORDERABLES Final Result documented in this encounter Visit Diagnoses Diagnosis Acute pain of left knee- Primary documented in this encounter Administered Medications Inactive Administered Medications - up to 3 most recent administrations Medication Order MAR Action Action Date Dose Rate Site ibuprofen (MOTRIN) tablet 600 mg 600 mg, oral, NOW X1, 1 dose, On 01/27/20 at 1515, RoutineIndications:Acute pain of left knee Given 01/27/2020 15:01 EDT 600 mg documented in this encounter Historical Medications * This list may reflect changes made after this encounter. Medication Sig Dispense Quantity Refills Last Filled Start D ate End Date omeprazole (PRILOSEC) 20 mg capsule daily 12/14/2019 added in this encounter Care Teams Board Of Education Secretary Relationship Specialty Start Date End Date [facility] PCP - General 01/27/20 documented as of this encounter
--- OUTSIDE RECORDS SUMMARY | 2024-12-02 12:48 | XMS_ITS | Encounter Summary ---
Author Organization [facility] Address [address] [place] [id number] Care Team Providers Care Manager Books Name Role Phone Barbie Prince [employer] Primary Care Provider [phone] Encounter Details Date Type Department Care Team (Latest Contact Info) Description 10/19/2018 16:35 EST - 10/19/2018 23:59 EST Hospital Encounter [address] [address] Unknown, Provider, MD Discharge Disposition: Home or Self Care Social History Tobacco Use Types Packs/Day Years Used Date Smoking Tobacco: Never Assessed Sex and Gender Information Value Date Recorded Sex Assigned at Not on file Legal Sex Male 17:36 EST Gender Identity Not on file Sexual Orientation Not on file documented as of this encounter Discharge Disposition Disposition Code Departure Means Destination Home or Self Alf documented in this encounter Plan of Treatment Not on file documented as of this encounter Visit Diagnoses Not on filedocumented in this encounter Care Teams Manager Books Relationship Specialty Start Date End Date Barbie Prince, [employer] [facility] [address] [place], [place] [address] PCP - General 12/17/14 10/21/18 documented as of this encounter
--- OUTSIDE RECORDS SUMMARY | 2024-12-02 12:48 | XMS_ITS | Encounter Summary ---
Author Organization [facility] Address [address] [place] [address] Care Team Providers Care Environmental Consultant Name Role Phone [facility] Primary Care Provider +1- [phone] Encounter Details Date Type Department Care Team (Late st Contact Info) Description 05/15/2020 Lab Requisition [facility] Pathology & Laboratory Medicine - [facility] [address] [place] [address] Outr Resulting Lab, Provider Social History Tobacco Use Types Packs/Day Years [...] Procedure Name Priority Date/Time Associated Diagnosis Comments DO NOT ORDER STANDALONE - BROAD COVID TEST Today 05/15/2020 9:04 EDT COVID-19 TESTING Routine 05/15/2020 9:04 EDT documented in this encounter Results * DO NOT ORDER STANDALONE - BROAD COVID TEST (05/15/2020 9:04 EDT) COVID-19 rt-PCR Result NEGATIVE Negative 05/16/2020 22:09 EDT [facility] Comment: 2019-novel Coronavirus (2019-nCoV) not detected by the qRT-PCR assay. Consider testing for other respiratory viruses or re-collecting for 2019-nCoV testing. Note: Optimum timing for peak viral levels during infections caused by 2019-nCoV have not been determined. Collection of multiple specimens from the same patient may be necessary to detect the virus. Limitations Positive results are indicative of active infection with SARS-CoV-2 but do not rule out bacterial infection or co-infection with other viruses. The agent detected may not be the definite cause of disease. In addition, detection of viral RNA may not indicate the presence of infectious virus or that SARS-CoV-2 is the causative agent for clinical symptoms. Negative results do not preclude SARS-CoV-2 infection and should not be used as the sole basis for patient management decisions. Negative results must be combined with clinical observations, patient history, and epidemiological information. False negative results may also occur if amplification inhibitors are present in the specimen or if inadequate numbers of organisms are present in the specimen. Optimum specimen types and timing for peak viral levels during infections caused by SARS-CoV-2 have not been fully determined. Collection of multiple specimens (types and time points) from the same patient may be necessary to detect the virus. The test was validated for use with upper respiratory specimens obtained via nasopharyngeal or oropharyngeal swabs in VTM, UTM, M4, M5, M6, saline, and MTM media. The performance of this test has not been established for other specimens. Specimens collected using other FDA recommended Specimen Collection Materials listed in the FDA COVID-19 [employer] communication (January 16, 2020) are processed with the caveat that they were not all validated for use with this test and the result must be interpreted in this context. Furthermore, a false negative results may occur if a specimen is improperly collected, transported or handled. If the virus mutates in the RT-PCR target region, SARS-CoV-2 may not be detected or may be detected less predictably. Inhibitors or other types of interference may produce a false negative result. An interference study evaluating the effect of common cold medications was not performed. This test is not FDA-cleared but its performance characteristics were established by our CLIA-certified, CAP-accredited, high complexity laboratory in accordance with CLIA regulations, [employer] [place] (CAP) guidelines (Jan 09, 2020), and FDA guidance (Dec 21, 2019). This test is only for use under the Food and Drug Administration's Emergency Use Authorization. Swab ENTIRE NASOPHARYNX / Unknown 05/15/2020 9:04 EDT 05/15/2020 15:41 EDT us Provider Outr Resulting Lab MICROBIOLOGY - GENER AL ORDERABLES Final Result [facility] [place] * COVID-19 TESTING (05/15/2020 9:04 EDT) COVID-19 rt-PCR Result NEGATIVE Negative 05/16/2020 23:38 EDT [facility] Comment: 2019-novel Coronavirus (2019-nCoV) not detected by the qRT-PCR assay. Consider testing for other respiratory viruses or re-collecting for 2019-nCoV testing. Note: Optimum timing for peak viral levels during infections caused by 2019-nCoV have not been determined. Collection of multiple specimens from the same patient may be necessary to detect the virus. Limitations Positive results are indicative of active infection with SARS-CoV-2 but do not rule out bacterial infection or co-infection with other viruses. The agent detected may not be the definite cause of disease. In addition, detection of viral RNA may not indicate the presence of infectious virus or that SARS-CoV-2 is the causative agent for clinical symptoms. Negative results do not preclude SARS-CoV-2 infection and should not be used as the sole basis for patient management decisions. Negative results must be combined with clinical observations, patient history, and epidemiological information. False negative results may also occur if amplification inhibitors are present in the specimen or if inadequate numbers of organisms are present in the specimen. Optimum specimen types and timing for peak viral levels during infections caused by SARS-CoV-2 have not been fully determined. Collection of multiple specimens (types and time points) from the same patient may be necessary to detect the virus. The test was validated for use with upper respiratory specimens obtained via nasopharyngeal or oropharyngeal swabs in VTM, UTM, M4, M5, M6, saline, and MTM media. The performance of this test has not been established for other specimens. Specimens collected using other FDA recommended Specimen Collection Materials listed in the FDA COVID-19 [employer] communication (January 16, 2020) are processed with the caveat that they were not all validated for use with this test and the result must be interpreted in this context. Furthermore, a false negative results may occur if a specimen is improperly collected, transported or handled. If the virus mutates in the RT-PCR target region, SARS-CoV-2 may not be detected or may be detected less predictably. Inhibitors or other types of interference may produce a false negative result. An interference study evaluating the effect of common cold medications was not performed. This test is not FDA-cleared but its performance characteristics were established by our CLIA-certified, CAP-accredited, high complexity laboratory in accordance with CLIA regulations, College of [place] [employer] (CAP) guidelines (Jan 09, 2020), and FDA guidance (Dec 21, 2019). This test is only for use under the Food and Drug Administration's Emergency Use Authorization. Performing Lab [facility] 05/16/2020 23:38 EDT [facility] Swab 05/15/2020 9:04 EDT 05/15/2020 15:41 EDT us Provider Outr Resulting Lab MICROBIOLOGY - GENER AL ORDERABLES Final Result [facility] [address] [place] [address] [facility] [place] documented in this encounter Visit Diagnoses Not on filedocumented in this encounter Care Teams Environmental Consultant Relationship Specialty Start Date End Date [facility] PCP - General 01/27/20 documented as of this encounter
--- OUTSIDE RECORDS SUMMARY | 2024-12-02 12:48 | XMS_ITS | Referral Summary ---
Author Organization [facility] Address [address] [place] [address] Care Team Providers Care Lens Generating Machine Tender Name Role Phone [facility] Primary Care Provider +1- [phone] Allergies Active Allergy Reactions Criticality Noted Date Comments Iodine 01/27/2020 Allergic to the iodine in shellfish Smpxtddpt-Gis-Sl-Acetamin ophen 01/27/2020 Throat closes/rash/dyspnea Medications omeprazole (PRILOSEC) 20 mg capsule daily 12/14/2019 Active Social History Tobacco Use Types Packs/Day Years Used Date Smoking Tobacco: Never Assessed Interpersonal Safety Answer Date Record ed Physically Hurt Never 05/24/2020 Verbally Threaten Not on file 05/24/2020 Sex and Gender Information Value Date Recorded Sex Assigned at Not on file Legal Sex Male 17:36 EST Gender Identity Not on file Sexual Orientation Not on file Last Filed Vital Signs Vital Sign Reading Time Taken Comments Blood Pressure 141/96 01/27/2020 1436 EDT Pulse 93 01/27/2020 1436 EDT Temperature 36.5 ??C (97.7 ??F) 01/27/2020 1436 EDT Respiratory Rate 18 01/27/2020 1436 EDT Oxygen Saturation 97% 01/27/2020 1436 EDT Inhaled Oxygen Concentration - - Weight - - Height - - Body Mass Index - - Plan of Treatment Not on file Insurance [facility] [place] [address] [facility] Care Teams Lens Generating Machine Tender Relationship Specialty Start Date End Date [facility] PCP - General 01/27/20
--- OUTSIDE RECORDS SUMMARY | 2024-12-02 12:48 | XMS_ITS | Encounter Summary ---
Author Organization [facility] Address [address] [place] [address] Care Team Providers Care Religion Instructor Name Role Phone Barbie Prince [facility] Primary Care Provider [phone] Encounter Details Date Type Department Care Team (Late st Contact Info) Description 10/19/2018 Results Only [facility] [phone] Reen Brennan, DO [address] [place] [address] Social History Tobacco Use Types Packs/Day Years [...] Priority Date/Time Associated Diagnosis Comments SURGICAL PATHOLOGY Routine 10/19/2018 18 :25 EST documented in this encounter Results * SURGICAL PATHOLOGY (10/19/2018 18:25 EST) Pathology Report: SURGICAL PATHOLOGY REPORT Reports generated via electronic interface contain original data; however they are lacking the format of the original report. Caution should be taken when reading/interpret ing unformatted reports. Name: ? TUSHAR GENAO ? Accession #: ? [id number] ? : ? 1970 (Age: 48) ??M ? Collect Date: ? 10/19/2018 ? Location: ? [facility] ? Receive Date: ? 10/19/2018 ? Provider: RENE BRENNAN DO Copy to: TISH WALDEN PAC ? Final Pathologic Diagnosis: A. STOMACH, ANTRUM, BIOPSY: - ??Antral and transitional mucosa with reactive gastropathy. - ??No evidence of Helicobacter pylori on H&E. B. ESOPHAGUS, LOWER, BIOPSY: - ??Reactive squamous and columnar mucosa with features of reflux esophagitis. - ??Negative for intestinal metaplasia or dysplasia. C. COLON, SIGMOID, POLYP, BIOPSY: - ??Fragments of tubulovillous adenoma. Document reviewed and electronically signed by: JOE LOCKETT MD Report ??Date: 10/24/2018 15:31 By the signature above, the attending physician certifies that he/she has personally conducted a gross and/or microscopic examination of the described specimens and rendered or confirmed the above diagnosis. Specimen(s) Received: A. ??Gastric antrum bxs B. ??Lower esophagus bxs C. ??Sigmoid colon polyp Clinical History: GERD; screening; clinical diagnosis code: ??K21.9, Z12.11 Gross Description: A. ?Received in formalin labelled with proper patient identification (initials J, W) and gastric antrum bxs are multiple pink-tovar tissues (0.1 x 0.1 x 0.2 cm to 0.4 x 0.4 x 0.6 cm). Entirely submitted in A1-A3. B. ?Received in formalin labelled with proper patient identification (initials J, W) and lower esophagus bxs are four pink-tovar tissues (0.2 x 0.2 x 0.4 cm to 0.2 x 0.3 x 0.5 cm). Entirely submitted in B1 and B2. C. ?Received in formalin labelled with proper patient identification (initials J, W) and sigmoid colon polyp are two pink-tovar tissues (0.1 x 0.1 x 0.1 cm to 0.4 x 0.5 x 1.2 cm). Entirely submitted in C1. Dr. Mix 10/20/2018 10:08 AM End of Report [facility] 10/19/2018 18:2 5 EST 10/19/2018 18:25 EST us Rene Brennan DO PATHOLOGY ORDERABLES Final Res ult [facility] [address] [place] [address] documented in this encounter Visit Diagnoses Not on filedocumented in this encounter Care Teams Religion Instructor Relationship Specialty Start Date End Date Barbie Prince NP [facility] [address] [place] [address] PCP - General 12/17/14 10/21/18 documented as of this encounter
--- OUTSIDE RECORDS SUMMARY | 2024-12-02 12:48 | XMS_ITS | Encounter Summary ---
Author Organization [facility] Address [address] [place] [address] Care Team Providers Care Bottom Ironer Name Role Phone [facility] Primary Care Provider +1- [phone] Encounter Details Date Type Department Care Team (Latest Contact Info) Description 01/27/2020 Travel Social History Tobacco Use Types Packs/Day [...] 14:24 EDT documented as of this encounter Plan of Treatment Not on file documented as of this encounter Visit Diagnoses Not on filedocumented in this encounter Care Teams Bottom Ironer Relationship Specialty Start Date End Date [facility] PCP - General 01/27/20 documented as of this encounter
--- OUTSIDE RECORDS SUMMARY | 2024-12-02 12:48 | XMS_ITS | Encounter Summary ---
Author Organization [facility] Address [address] [place] [address] Care Team Providers Care Test Director Name Role Phone [facility] Primary Care Provider +1- [phone] Encounter Details Date Type Department Care Team (Late st Contact Info) Description 11/25/2022 Lab Requisition [facility] Pathology & Laboratory Medicine - [facility] [address], [place] [id number] Outr Resulting Lab, Provider Social History Tobacco [...] Procedure Name Priority Date/Time Associated Diagnosis Comments PSA TOTAL, DIAGNOSTIC Routine 11/25/2022 7:42 EST documented in this encounter Results * PSA TOTAL, DIAGNOSTIC (11/25/2022 7:42 EST) PSA 0.4 <=3.5 ng/mL 11/25/2022 22:49 EST [facility] Blood VENOUS BLOOD / Unknown 11/25/2022 7:42 EST 11/25/2022 21:35 EST Narrative [facility] - 11/25/2022 22:49 EST NOTE: Serum PSA concentration should not be interpreted as absolute evidence for the presence or absence of malignant disease. Assayed on Siemens ADVIA Deemeloaur XPT using chemiluminescent technology.??Values obtained by using different assay methods cannot be used interchangeably. us Provider Outr Resulting Lab CHEMISTRY & BLOOD GA S ORDERABLES Final Result [facility] [address] [place] [address] documented in this encounter Visit Diagnoses Not on filedocumented in this encounter Care Teams Test Director Relationship Specialty Start Date End Date [facility] PCP - General 01/27/20 documented as of this encounter
--- OUTSIDE RECORDS SUMMARY | 2024-12-02 12:48 | XMS_ITS | Clinical Summary ---
Author Organization [facility] Address [address] [place] [address] Care Team Providers Care Python Engineer Name Role Phone [facility] Primary Care Provider +1- [phone] Allergies Active Allergy Reactions Criticality Noted Date Comments Iodine 01/27/2020 Allergic to the iodine in shellfish Kqkvrxpac-Grm-Kt-Acetamin ophen 01/27/2020 Throat closes/rash/dyspnea Medications omeprazole (PRILOSEC) [...] Mass Index - - Plan of Treatment Health Maintenance Due Date Last Done Comments Hepatitis C Screen 1970 Hepatitis B Vaccine (1 of 3 - 19+ 3-dose series) 08/16 COVID-19 Vaccine (2023- season) [address] [place] [address] [facility] Address: [address] [address] [facility] Address: [address] [address] [place] [address] PMA WC Care Teams Python Engineer Relationship Specialty Start Date End Date [facility] PCP - General 01/27/20
--- OUTSIDE RECORDS SUMMARY | 2024-12-02 12:49 | XMS_ITS | Encounter Summary ---
Author Organization [facility] Address [address] [place] [address] Care Team Providers Care Farm Machinery Set Up Mechanic Name Role Phone Unknown, Provider Primary Care Provider Unava ilable Encounter Details Date Type Department Care Team (Late st Contact Info) Description 12/15/2014 Results Only [facility]- [facility] [phone] Tish Walden, [address] [place] [address] Social History Tobacco Use Types Packs/Day Years [...] Date/Time Associated Diagnosis Comments SURGICAL PATHOLOGY Routine 12/15/2014 17 :37 EST documented in this encounter Results * SURGICAL PATHOLOGY (12/15/2014 17:37 EST) Pathology Report: SURGICAL PATHOLOGY REPORT Reports generated via electronic interface contain original data; however they are lacking the format of the original report. Caution should be taken when reading/interpreting unformatted reports. Name: ? TUSHAR GENAO ? Accession #: ? [id number] ? : ? 1970 (Age: 44) ??M ? Collect Date: ? 12/15/2014 ? Location: ? [facility] ? Receive Date: ? 12/16/2014 ? Provider: TISH WALDEN PAC Copy to: ? Final Pathologic Diagnosis: SKIN OF BACK, LEFT UPPER, PUNCH BIOPSY: - Spongiotic dermatitis. ??See comment. Comment: The biopsy shows features of spongiotic (eczematous) dermatitis with a moderate degree of inflammation. ??The features could represent early nummular dermatitis or other forms of eczematous dermatitis. ??No fungal organisms are identified with PAS stain. ??(Dr. Pritchett)/formerly [facility] Microscopic Description: Sections consist of a small punch biopsy of skin to the deep reticular dermis. The stratum corneum has foci of parakeratosis and scale crust. ??The epidermis varies to a mild degree in thickness, but has a generally diminished rete ridge pattern. ??There is a variable degree of spongiosis with exocytosis of a small number of lymphocytes. ??Within the dermis, there is edema and a patchy interstitial lymphomononuclear infiltrate. ??A rare eosinophil is noted. ??Some of the vessels show reactive changes. ??Numerous deeper sections show similar features. ??No fungal organisms are identified on sections prepared with PAS-amylase stain. ??(Dr. Pritchett)/[place] Document reviewed and electronically signed by: MARI PRITCHETT MD Report ??Date: 12/18/2014 13:14 By the signature above, the attending physician certifies that he/she has personally conducted a gross and/or microscopic examination of the described specimens and rendered or confirmed the above diagnosis. Specimen(s) Received: 3.0 mm punch biopsy L upper back Clinical History: 1.0 x 1.0 cm macular, faintly erythematous, scaly rash; itchy; no drainage; irregular borders Gross Description: ? Received in formalin labelled with proper patient identification (initials J, W) and left upper back is a punch biopsy of tovar skin (0.3 cm in diameter and 0.2 cm in thickness). Submitted intact in Сергей Tolliver 12/16/2014 7:29 PM End of Report [facility] 12/15/2014 17:3 7 EST 12/16/2014 17:37 EST us Tish Walden PA-C PATHOLOGY ORDERABLES Valorie leary Result Performing Organization Address City/State/[facility] Co de Phone Number [facility] [address] [place] [address] documented in this encounter Visit Diagnoses Not on filedocumented in this encounter Care Teams Farm Machinery Set Up Mechanic Relationship Specialty Start Date End Date Unknown, Provider, PCP - General 12/16/14 12/16/14 documented as of this encounter
--- OUTSIDE RECORDS SUMMARY | 2024-12-02 12:49 | XMS_ITS | Encounter Summary ---
Author Organization Health system Address [address] [place] [address] Care Team Providers Care Financial Officer Name Role Phone Unavailable Primary Care Provider Unavailabl e Encounter Details Date Type Department Care Team (Latest Contact Info) Description 12/15/2014 11:04 EST - 12/15/2014 23:59 EST Hospital Encounter [address] [address] Unknown, Provider, MD Discharge Disposition: Home or [...] Code Departure Means Destination Home or Self Residential documented in this encounter Plan of Treatment Not on file documented as of this encounter Visit Diagnoses Not on filedocumented in this encounter
[2024-12-02 16:12] LABS: ALT 31 U/L (16-63); AST 20 U/L (15-37); Albumin 3.6 g/dL (3.4-5.0); Alkaline Phosphatase 120 U/L (46-116); Anion Gap 7.6 mmol/L (3-11); BUN 15 mg/dL (7-18); Bilirubin, Total 0.45 mg/dL (0.2-1.0); CO2 27.4 mmol/L (21.0-32.0); CREATININE 1.1 mg/dL (0.70-1.30); Calcium 8.8 mg/dL (8.5-10.1); Calculated LDL 126 mg/dL (<100); Chloride 106 mmol/L (98-107); Cholesterol 207 mg/dL (<200); Estimated GFR 78.79 (mL/min/1.73m2); Glucose 100 mg/dL (74-106); HDL Cholesterol 44 mg/dL (40-60); Potassium 4.5 mmol/L (3.5-5.1); Sodium 141 mmol/L (136-145); TSH (W/Ref FT4) 1.77 uIU/mL (0.36-3.74); Triglyceride 186 mg/dL (<150)
[2024-12-02 22:38] LABS: HIV-1/2 Ag & Ab Screen Negative (Negative)
[2024-12-02 22:43] LABS: Hepatitis C Ab w Rflx HCV PCR Negative (Negative)
== END 2024-12-02 12:44 | disposition home or self-care (01) ==
LOC: NCHCN 12:43
PROVIDERS: PCP Nurse Practitioner Family; Visit Provider Nurse Practitioner Family
DX: E78.2 Mixed hyperlipidemia (principal); Z00.00 Encounter for general adult medical examination without abnormal findings
CPT/HCPCS: 80053; 80061; 86803; 87389; 84443

== ENCOUNTER 2025-02-07 06:02 | Day surgery (SDC) | payer BC, SELFPAY ==
[2025-02-07 06:15] VITALS: BP 129/88; PULSE 56; RESP 18; TEMP 36.6; O2SAT 94
[2025-02-07] MEDS: Lactated Ringers 1,000 ML 80 ML IV (06:46)
--- NOTE | 2025-02-07 07:08 | W.ANESPRE ---
General Info Date of Service Date Performed: 02/07/25 Height: 5 ft 10 in Weight: 107.9 kg Body Mass Index (BMI): 34.1 Surgical Procedure: Operation Date: 02/07/25 07:35 Proposed Procedure Side Surgeon p Colonoscopy Spike Watson MD Actual Procedure Side Surgeon p Colonoscopy Not Applicable Spike Watson MD Pre-Op Diagnosis Post-Op Diagnosis Screening colonoscopy, History of Polyps Meds Allergies and Home Medications Allergies Allergy/AdvReac Type Severity Reaction Status Date / Time dextromethorphan (From [facility] Allergy Severe Anaphylaxis Verified 02/07/25 06:35 NyQuil Cold/Flu Liquicap) shellfish derived Allergy Severe Anaphylaxis, Verified 02/07/25 06:35 hives iodine Allergy Intermediate Hives Verified 02/07/25 06:35 doxylamine (From [facility] AdvReac Severe Anaphylaxis Verified 02/07/25 06:35 NyQuil Cold/Flu Liquicap) Home Medication ?Medication ?Instructions ?Recorded multivitamin (Once Daily tablet) 1 tab PO DAILY 03/23/17 omeprazole magnesium 20 mg 20 mg PO DAILY 05/02/17 tablet,delayed release (Prilosec OTC) acetaminophen 500 mg tablet 1,000 mg PO DAILY PRN 01/09/25 bisacodyl 5 mg tablet,delayed 5 mg PO ONCE colonscopy bowel prep 01/09/25 release (Dulcolax (bisacodyl)) #4 tabs ibuprofen 200 mg tablet (Advil) 600 mg PO Q6H PRN 01/09/25 magnesium oxide 500 mg PO DAILY PRN 01/09/25 polyethylene glycol 3350 17 238 g PO ONCE colonoscopy prep 01/09/25 gram/dose oral powder #238 grams vitamin B complex (B Complex 1 1 tab PO DAILY PRN 01/09/25 tablet) Current Visit Medications: Current Medications Generic Name Dose Route Start Last Admin Trade Name Freq PRN Reason Stop Dose Admin Ringer's Solution 1,000 mls @ 80 mls/hr 02/07/25 06:00 02/07/25 06:46 IV 02/07/25 23:59 80 mls/hr INFUSION JES Administration IV Miscellaneous Supplies 1 each 02/07/25 06:00 Iv Access IV 02/07/25 23:59 DIRECTED JES Sodium Chloride 0 ml 02/07/25 06:00 Normal Saline Flush 10 Ml Syr IV 02/07/25 23:59 PRN PRN Sodium Chloride 0 ml 02/07/25 06:00 Normal Saline 10 Ml Vial IJ 02/07/25 23:59 DIRECTED PRN Sterile Water 0 ml 02/07/25 06:00 Water,Injection,Sterile 10 Ml Vial IJ 02/07/25 23:59 DIRECTED PRN PFSH Active Problems Active Problems: Problem Status Onset Code COVID-19 Acute U07.1 Sessile colonic polyp Acute ~12/03/21 K63.5 Diverticula of colon Acute K57.30 Villous adenoma of left colon Acute D37.4 Second degree burn of multiple sites of lower extremity Acute T24.299A Screening for colon cancer Acute Z12.11 Pes anserine bursitis Acute M70.50 Tear of medial collateral ligament of left knee Acute 01/27/20 S83.412A Acute medial meniscus tear of left knee Acute 01/27/20 S83.242A Torn ACL (anterior cruciate ligament) Acute 01/27/20 S83.519A Recurrent tonsillitis Acute J03.91 Reflux esophagitis Acute K21.0 Tonsil stone Acute J35.8 Fatigue Acute R53.83 Hyperlipidemia Chronic E78.5 Medical History Medical History Anesthesia Pt. states whenever he comes out of anesthesia his HR drops. Last procedure he was here for HR went to 45 bpm Past history of chewing tobacco use Tubular adenoma of colon (10/19/18) Dr Beltrán, repeat colo 3 years Umbilical hernia Surgical History Surgical History History of esophagogastroduodenoscopy (EGD) (10/19/18) 10/19/18 Dr Beltrán, reflux esophagitis H/O colonoscopy (12/03/21) 10/19/[address] Beltrán, tubulovillous adenoma, repeat in three years. H/O umbilical hernia repair (05/03/17) Dr beltrán Tobacco Smoking/Tobacco Use Status: Former Tobacco Use Passive smoking exposure: Yes Alcohol Alcohol Intake: current Alcohol intake frequency: holidays/special occasions only Substance Use Substance use: Never Substance use type: does not use Vital Signs and Lab Results Vital Signs Most Recent Vital Signs in EMR: Most Recent Vital Signs Temp Pulse Resp BP Pulse Ox 36.6 C 56 L 18 129/88 94 02/07/25 06:15 02/07/25 06:15 02/07/25 06:15 02/07/25 06:15 02/07/25 06:15 Lab Results Blood Type / Crossmatch: No Data to Display Complete Blood Count: No Data to Display Complete Metabolic Panel: No Data to Display Liver Function Panel: No Data to Display Coagulation Panel: No Data to Display Cardiac Panel: No Data to Display Arterial Blood Gas: No Data to Display Venous Blood Gas: No Data to Display Pancreas Panel: No Data to Display Thyroid Panel: No Data to Display Infectious Disease: No Data to Display Blood Cultures: No Data to Display Toxicology Panel: No Data to Display Anesthesia Assessment and Plan Anesthesia History Personal History: Other Family History: No Family History of Anesthesia Complications Exercise Tolerance Exercise Tolerance: Metabolic Equivalents>4 Cardiac & Pulmonary Exam Cardiac Exam: Normal S1/S2 Heart Sounds Pulmonary Exam: Clear Bilateral Breath Sounds Implantable Cardiac Device Does patient have a Pacemaker or an ICD?: No Airway Exam Known Difficult Airway: No Mallampati Class: 2 Mouth Opening: Normal (> 3cm) Thyromental Distance: Greater than 3 cm Neck Range of Motion: Full ROM Neck Circumference: Normal Teeth Condition: Normal Dentition ASA Classification ASA Score: ASA 2 Emergency Case?: No NPO Status NPO Status: NPO Clears >2 hours, Solids >8 hours Anesthesia Plan Resuscitation Status: Full Code Anesthesia Technique: General Anesthesia Airway Planned: Natural Airway Monitors Used: Standard Monitors
[2025-02-07 07:10] VITALS: BMI 34.1
[2025-02-07 07:58] VITALS: BP 117/73; PULSE 51; RESP 14; TEMP 36.3; O2SAT 95
--- NOTE | 2025-02-07 08:01 | W.COLOREPORT ---
Date of service: 02/07/25 Time of Service: 08:01 Colonoscopy Report Procedure Description: PROCEDURES PERFORMED: 1. Colonoscopy PREOPERATIVE DIAGNOSIS: Surveillance colonoscopy, colon polyps POSTOPERATIVE DIAGNOSIS: Mild sigmoid diverticulosis, mild grade 1 internal hemorrhoids SURGEON: Ravindra Watson MD INDICATION FOR PROCEDURE: the patient is a 54-year-old man with no symptoms, he has had prior adenomatous polyps found. No family history of colon cancer. FINDINGS: The terminal ileum was normal. There were no new polyps found. Minimal/mild, scattered diverticular changes in the sigmoid colon only. Mild grade 1 internal hemorrhoid disease. SURVEILLANCE interval/FOLLOW-UP: 5 years SPECIMENS: None EBL: Minimal COMPLICATIONS: None QUALITY of prep: Excellent Procedure in detail: The patient gave written consent and was in agreement with the indications, the potential risks as well as the benefits of the procedure. They were taken to the endoscopy suite and laid in the left lateral decubitus position. A timeout was performed and anesthesia was administered which was tolerated well. I started the procedure. Digital rectal and visual examination was performed and grossly within normal limits. A well-lubricated flexible colonoscope was then introduced and passed without any notable difficulty all the way to the cecum identified by the ileocecal valve and the appendiceal orifice. The terminal ileum was intubated and appeared normal. The scope was then slowly withdrawn with the above-noted findings. The patient tolerated the procedure well and was taken to the PACU in hemodynamically stable condition.
--- NOTE | 2025-02-07 08:02 | W.PM.DSUDISC ---
Date of service: 02/07/25 Discharge Plan Disposition Patient Disposition: Home Condition: Good Discharge Details Attending Provider: Spike Watson Primary Care Provider: Delma Dos Santos Home Meds and New Rx's Prescriptions: No Action vitamin B complex [B Complex 1] Tablet 1 tab PO DAILY PRN acetaminophen 500 mg tablet 1,000 mg PO DAILY PRN ibuprofen [Advil] 200 mg tablet 600 mg PO Q6H PRN polyethylene glycol 3350 17 gram/dose powder 238 g PO ONCE Qty: 238 0RF Rx Instructions: take per colonoscopy instructions bisacodyl [Dulcolax (bisacodyl)] 5 mg tablet,delayed release (DR/EC) 5 mg PO ONCE Qty: 4 0RF Rx Instructions: take per colonoscopy instructions omeprazole magnesium [Prilosec OTC] 20 MG tablet,delayed release (DR/EC) 20 mg PO DAILY magnesium oxide 500 mg magnesium tablet 500 mg PO DAILY PRN multivitamin [Once Daily] 1 EACH tablet 1 tab PO DAILY Discharge Instructions Additional Instructions: FINDINGS: No new polyps are found. You do have some mild diverticular disease and some mild hemorrhoid disease. These are extremely common conditions that are benign, nothing needs to be done about them. Because there were no new polyps found today I recommend repeating another colonoscopy in 5 years Activity:: Activity as Tolerated Diet:: As Tolerated
--- NOTE | 2025-02-07 08:20 | W.ANESPOSTOP ---
Postoperative Evaluation Date, Time and Location Date Performed: 02/07/25 Time Performed: 08:20 Patient Location: Day [facility] Unit Vital Signs Most Recent Imported Vital Signs: Most Recent Vital Signs Temp Pulse Resp BP Pulse Ox 36.3 C L 51 L 14 117/73 95 02/07/25 07:58 02/07/25 07:58 02/07/25 07:58 02/07/25 07:58 02/07/25 07:58 Pain Score Most Recent Pain Score: Most Recent Pain Score Pain Level 0 02/07/25 07:58 Assessment Mental Status: Awake (Alert & Oriented to Patient Baseline) Airway and Respiratory Function: Patent airway with normal (patient baseline) respiratory exam Cardiovascular Function: Hemodynamically Stable Hydration Status: Adequately Hydrated Nausea & Vomiting: No Nausea or Vomiting Pain: Pt. Denies Any Pain Peripheral Nerve Block: Patient did not receive a nerve block
[2025-02-07 08:30] VITALS: BP 125/80; PULSE 48; RESP 16; TEMP 36.3; O2SAT 96
== END 2025-02-07 08:39 | disposition home or self-care (01) ==
PROVIDERS: PCP Nurse Practitioner Family; Visit Provider Student in an Organized Health Care Education/Training Program
PROC: 0DJD8ZZ Inspection of Lower Intestinal Tract, Via Natural or Artificial Opening Endoscopic (ICD-10-PCS; CPT 45378; principal; 2025-02-07 07:30)
DX: Z12.11 Encounter for screening for malignant neoplasm of colon (principal); K63.5 Polyp of colon; K57.30 Diverticulosis of large intestine without perforation or abscess without bleeding; K64.0 First degree hemorrhoids
CPT/HCPCS: 45378; J2003; J2704